=== PATIENT | male | born 1945 | race Caucasian/White ===

== ENCOUNTER 2020-02-07 16:56 | Inpatient (IN) ==
[~2020-02-07 16:56] MED LIST: *HR* Etomidate 20 MG/10 ML AMPUL IVP ONE; *HR* Rocuronium Bromide 100 MG/10 ML VIAL IVC ONE; Aminoglycoside Consult 1 EACH MC ONE
[2020-02-07] MEDS ORDERED: Ipratropium/Albuterol Neb 3 ML IH ONE (17:14)
[2020-02-07] MEDS ORDERED: methylPREDNISolone 125 MG/2 ML VIAL IVP ONE (17:30)
[2020-02-07] MEDS ORDERED: Piperacillin/Tazobactam 3.375 GM in Water for inj. (sterile) 20 ML IVP ONE (17:58)
[2020-02-07] MEDS ORDERED: Tuberculin Skin Test (PPD) 5 UNIT/0.1 ML VIAL ID STA (17:58)
[2020-02-07] MEDS ORDERED: Albuterol 2.5 MG/3 ML NEBULIZER IH ONE (17:59)
[2020-02-07] MEDS ORDERED: Azithromycin 500 MG in 0.9 % Sodium Chloride 250 ML IVPB ONE (18:01)
[2020-02-07] MEDS ORDERED: Glycopyrrolate 1 MG TABLET PO STA (18:08)
[2020-02-07] MEDS ORDERED: Nitroglycerin 0.4 MG TAB.SUBL SL STA (18:23)
[2020-02-07] MEDS ORDERED: *HR* Etomidate 20 MG/10 ML AMPUL IVP ONE (18:35)
[2020-02-07] MEDS ORDERED: *HR* Rocuronium Bromide 50 MG/5 ML VIAL IVP ONE (18:35)
[2020-02-07] MEDS ORDERED: *HR* EPINEPHrine 100 MCG/10 ML SYRINGE IVP ONE (18:44)
[2020-02-07 18:47] LABS: INR 2.4; Prothrombin Time 26.9 Seconds (9.4-12.1)
[2020-02-07 18:47] LABS: VBG HCO3 25 mEq/L (21-27); VBG PCO2 38 mmHg (41-51); VBG PH 7.43 pH Units (7.32-7.42); VBG PO2 136 mmHg (25-50)
[2020-02-07 18:50] LABS: Basophils % 0.5 %; Eosinophils # 0.2 K/mcL (0.0-0.6); Eosinophils % 1.9 %; Hematocrit 32.4 % (37.5-50.1); Hemoglobin 10.3 g/dL (12.9-16.9); Immature Granulocytes % 0.4 % (0-4); Lymphocytes # 2.3 K/mcL (0.6-4.6); Lymphocytes % 29.5 %; Mean Corpuscular HGB Conc 31.8 g/dL (31.6-35.5); Mean Corpuscular Hemoglobin 26.4 pg (28.0-33.3); Mean Corpuscular Volume 83.1 fL (83.0-100.0); Mean Platelet Volume 11.2 fL (9.4-12.4); Monocytes # 0.5 K/mcL (0.0-1.3); Monocytes % 6.3 %; Neutrophils # 4.8 K/mcL (1.6-8.9); Platelet Count 142 K/mcL (140-400); Segmented Neutrophils % 61.4 %; White Blood Count 7.8 K/mcL (4.3-11.1)
[2020-02-07 19:05] LABS: BUN/Creatinine Ratio 38 (6-26); Blood Urea Nitrogen 18 mg/dL (8-23); Calcium 8.4 mg/dL (8.6-10.3); Carbon Dioxide 24 mEq/L (23-29); Chloride 103 mEq/L (98-107); Glucose 130 mg/dL (70-105); Osmolality,Calculated 284 (280-300); Potassium 3.8 mEq/L (3.5-5.1); Sodium 135 mEq/L (136-145); Troponin I < 0.03 ng/mL (< 0.04); eGFR For African Americans > 60 (> 60); eGFR For Non-African Americans > 60 (> 60)
[2020-02-07] MEDS ORDERED: *HR* FentaNYL (PF) 100 MCG/2 ML VIAL IVP ONE (19:22)
[2020-02-07] MEDS: FentaNYL (PF) 1,000 MCG in 0.9 % Sodium Chloride 80 ML IVC SCH (19:42)
[2020-02-07] MEDS ORDERED: Naloxone 0.4 MG/ML INJ IVP PRN (20:44)
[2020-02-07] MEDS ORDERED: *HR* Dextrose 50 % in Water (Syg) 50 ML SYRINGE IVP PRN (20:47)
[2020-02-07] MEDS ORDERED: D5% in Water 1,000 ML IVC PRN (20:47)
[2020-02-07] MEDS ORDERED: Artificial Tears SOLN 15 ML BOTTLE BOTH EYES PRN (20:47)
[2020-02-07] MEDS ORDERED: Dextrose Gel 15 GM/37.5 ML TUBE PO PRN ×2 (20:47)
[2020-02-07] MEDS ORDERED: *HR* Labetalol 20 MG/4 ML SYRINGE IVP PRN (20:49)
[2020-02-07 22:18] LABS: ABG Base Excess -3 mEq/L (-2 to 3); ABG HCO3 25 mEq/L (21-27); ABG Oxygen Saturation 100 % (95-98); ABG PCO2 59 mmHg (35-45); ABG PH 7.24 pH Units (7.32-7.45); ABG PO2 283 mmHg (85-104); ABG TCO2 27 mEq/L (20-26); Blood Gas VT 500 cc
[2020-02-07] MEDS: Chlorhexidine Rinse 15 ML MOUTHWASH MM SCH (22:20)
[2020-02-07] MEDS ORDERED: Isovue-370 500 ML BOTTLE IVP ONE (22:23)
[2020-02-07] MEDS: Pantoprazole 40 MG VIAL IVP SCH (22:30)
[2020-02-07 22:34] LABS: Bilirubin,Urine Negative (Negative); Blood,Urine Large (Negative); Clarity,Urine Cloudy (Clear); Color,Urine Yellow (Yellow); Glucose,Urine (UA) Normal (Normal); Ketones,Urine Negative (Negative); Leukocyte Esterase,Urine Trace (Negative); Nitrite,Urine Negative (Negative); Protein,Urine 100 mg/dL (Neg-Trace); Specific Gravity,Urine 1.016 (1.010-1.025); Urobilinogen,Urine Normal (Normal)
[2020-02-07 22:37] LABS: Bacteria,Urine None Seen per hpf (None-Few); Hyaline Casts,Urine None Seen per lpf (None-Few); RBC,Urine 30-50 per hpf (0-3); Squamous Epithelial Cell,Urine Many per lpf (None-Few)
[2020-02-07 22:56] LABS: Hematocrit 39.7 % (37.5-50.1)
[2020-02-07 22:58] LABS: Hemoglobin 11.9 g/dL (12.9-16.9)
[2020-02-08] MEDS: Artificial Tears SOLN 15 ML BOTTLE BOTH EYES SCH ×7 (00:39→23:41)
[2020-02-08] MEDS: Piperacillin/Tazobactam 3.375 GM in 0.9 % Sodium Chloride Mini Bag 100 ML IVPB SCH ×4 (00:40→23:40)
[2020-02-08] MEDS ORDERED: Calcium Gluconate 1gm/50mL 1 GM/50 ML BAG IVPB ONE ×2 (02:07→04:00)
[2020-02-08] MEDS ORDERED: Octreotide 50 MCG/ML INJ IVP ONE (02:09)
[2020-02-08] MEDS ORDERED: Dextrose Gel 15 GM/37.5 ML TUBE PO PRN ×2 (02:13)
[2020-02-08] MEDS ORDERED: *HR* Dextrose 50 % in Water (Syg) 50 ML SYRINGE IVP PRN (02:13)
[2020-02-08] MEDS ORDERED: D5% in Water 1,000 ML IVC PRN (02:13)
[2020-02-08] MEDS ORDERED: Vancomycin (wt based) 1,000 MG VIAL IVPB SCH (03:00)
[2020-02-08] MEDS: Insulin LISPRO 300 UNITS/3 ML VIAL SQ SCH ×5 (03:20→23:41)
[2020-02-08] MEDS: Octreotide 400 MCG in 0.9 % Sodium Chloride 100 ML IVC SCH ×2 (03:43→18:40)
[2020-02-08 04:11] LABS: ABG Base Excess -1 mEq/L (-2 to 3); ABG HCO3 25 mEq/L (21-27); ABG Oxygen Saturation 92 % (95-98); ABG PCO2 49 mmHg (35-45); ABG PH 7.32 pH Units (7.32-7.45); ABG PO2 70 mmHg (85-104); ABG TCO2 27 mEq/L (20-26); Blood Gas VT 500 cc
[2020-02-08] MEDS: FentaNYL (PF) 1,000 MCG in 0.9 % Sodium Chloride 80 ML IVC SCH (04:32)
[2020-02-08 05:07] LABS: INR 1.9; Prothrombin Time 21.1 Seconds (9.4-12.1)
[2020-02-08] MEDS: Pantoprazole 40 MG VIAL IVP SCH ×2 (05:16→18:37)
[2020-02-08 05:29] LABS: Alanine Aminotransferase 8 Units/L (7-52); Alkaline Phosphatase 96 Units/L (34-104); Aspartate Amino Transferase 15 Units/L (13-39); BUN/Creatinine Ratio 33 (6-26); Bilirubin,Total 0.6 mg/dL (0.3-1.0); Blood Urea Nitrogen 27 mg/dL (8-23); Calcium 8.6 mg/dL (8.6-10.3); Carbon Dioxide 23 mEq/L (23-29); Chloride 104 mEq/L (98-107); Glucose 178 mg/dL (70-105); Magnesium 1.9 mg/dL (1.6-2.6); Osmolality,Calculated 292 (280-300); Phosphorous 4.9 mg/dL (2.7-4.5); Potassium 4.3 mEq/L (3.5-5.1); Sodium 136 mEq/L (136-145); eGFR For African Americans > 60 (> 60); eGFR For Non-African Americans > 60 (> 60)
[2020-02-08] MEDS ORDERED: Pantoprazole 40 MG VIAL IVP SCH (06:00)
[2020-02-08] MEDS ORDERED: Insulin LISPRO 300 UNITS/3 ML VIAL SQ SCH ×2 (06:00)
[2020-02-08] MEDS ORDERED: Piperacillin/Tazobactam 3.375 GM in 0.9 % Sodium Chloride Mini Bag 100 ML IVPB SCH (06:00)
[2020-02-08 06:22] LABS: Hematocrit 31.8 % (37.5-50.1); Immature Granulocytes % 0.5 % (0-4); Lymphocytes # 0.8 K/mcL (0.6-4.6); Lymphocytes % 17.9 %; Mean Corpuscular HGB Conc 31.1 g/dL (31.6-35.5); Mean Corpuscular Hemoglobin 26.3 pg (28.0-33.3); Mean Corpuscular Volume 84.4 fL (83.0-100.0); Mean Platelet Volume 11.8 fL (9.4-12.4); Monocytes # 0.1 K/mcL (0.0-1.3); Monocytes % 1.1 %; Platelet Count 131 K/mcL (140-400); Red Blood Count 3.77 M/mcL (4.19-5.50); Red Cell Distribution Width 16.7 % (11.5-14.5); Segmented Neutrophils % 80.5 %
[2020-02-08 06:23] LABS: Hemoglobin 9.9 g/dL (12.9-16.9); Neutrophils # 3.5 K/mcL (1.6-8.9); White Blood Count 4.4 K/mcL (4.3-11.1)
[2020-02-08] MEDS: Chlorhexidine Rinse 15 ML MOUTHWASH MM SCH ×2 (07:39→20:30)
[2020-02-08 08:43] LABS: Estimated Average Glucose 114 mg/dl
[2020-02-08] MEDS ORDERED: *HR* EPINEPHrine 1 MG/10 ML SYRINGE INTRATRACH STA (09:54)
[2020-02-08] MEDS: Dexmedetomidine HCl 400 MCG/100 ML MLS IVC SCH ×2 (10:00→23:43)
[2020-02-08] MEDS ORDERED: Dexmedetomidine HCl 400 MCG/100 ML MLS IVC ONE (10:01)
[2020-02-08] MEDS ORDERED: *HR* EPINEPHrine 1 MG/10 ML SYRINGE ONE (10:14)
[2020-02-08 12:27] LABS: Adenovirus Not Detected (Not Detect); Bordetella Pertussis Not Detected (Not Detect); Chlamydophila pneumoniae Not Detected (Not Detect); Coronavirus 229E Not Detected (Not Detect); Coronavirus HKU1 Not Detected (Not Detect); Coronavirus NL63 Not Detected (Not Detect); Coronavirus OC43 Not Detected (Not Detect); Human Metapneumovirus Not Detected (Not Detect); Human Rhinovirus/Enterovirus Not Detected (Not Detect); Influenza B Not Detected (Not Detect); Mycoplasma pneumoniae Not Detected (Not Detect); Parainfluenza Virus 1 Not Detected (Not Detect); Parainfluenza Virus 2 Not Detected (Not Detect); Parainfluenza Virus 3 Not Detected (Not Detect); Parainfluenza Virus 4 Not Detected (Not Detect); Respiratory Syncytial Virus Not Detected (Not Detect)
[2020-02-08 12:29] LABS: Influenza A Subtype 2009 H1 DETECTED (Not Detect)
[2020-02-08 13:19] LABS: Bilirubin,Urine Negative (Negative); Blood,Urine Trace (Negative); Clarity,Urine Clear (Clear); Color,Urine Yellow (Yellow); Glucose,Urine (UA) Normal (Normal); Ketones,Urine Negative (Negative); Leukocyte Esterase,Urine Negative (Negative); Nitrite,Urine Negative (Negative); Protein,Urine 30 mg/dL (Neg-Trace); Specific Gravity,Urine > 1.030 (1.010-1.025); Urobilinogen,Urine Normal (Normal)
[2020-02-08 13:22] LABS: Bacteria,Urine None Seen per hpf (None-Few); Hyaline Casts,Urine None Seen per lpf (None-Few); RBC,Urine 15-30 per hpf (0-3); Squamous Epithelial Cell,Urine Many per lpf (None-Few)
[2020-02-08 14:57] LABS: Hematocrit 31.4 % (37.5-50.1)
[2020-02-08] MEDS: Ipratropium/Albuterol Neb 3 ML IH SCH ×2 (15:35→21:56)
[2020-02-08] MEDS: Azithromycin 500 MG in 0.9 % Sodium Chloride 250 ML IVPB SCH (15:57)
[2020-02-08 18:08] LABS: Red Cell Distribution Width 16.6 % (11.5-14.5)
[2020-02-08 18:08] LABS: Appearance of Body Fluid Cloudy (Clear); Volume of Body Fluid 15 mL
[2020-02-08 18:10] LABS: Hematocrit 31.3 % (37.5-50.1); Hemoglobin 9.8 g/dL (12.9-16.9); Immature Platelets 6.6 % (1.1-6.1); Mean Corpuscular HGB Conc 31.3 g/dL (31.6-35.5); Mean Corpuscular Hemoglobin 26.2 pg (28.0-33.3); Mean Corpuscular Volume 83.7 fL (83.0-100.0); Mean Platelet Volume 12.1 fL (9.4-12.4); Red Blood Count 3.74 M/mcL (4.19-5.50); White Blood Count 3.2 K/mcL (4.3-11.1)
[2020-02-08 20:59] LABS: Hematocrit 32.4 % (37.5-50.1); Hemoglobin 9.9 g/dL (12.9-16.9)
[2020-02-09] MEDS: Ipratropium/Albuterol Neb 3 ML IH SCH ×4 (03:27→21:39)
[2020-02-09 04:32] LABS: Hematocrit 30.3 % (37.5-50.1); Hemoglobin 9.5 g/dL (12.9-16.9); Immature Granulocytes % 0.2 % (0-4); Lymphocytes # 0.7 K/mcL (0.6-4.6); Lymphocytes % 15.6 %; Mean Corpuscular HGB Conc 31.4 g/dL (31.6-35.5); Mean Corpuscular Hemoglobin 26.6 pg (28.0-33.3); Mean Corpuscular Volume 84.9 fL (83.0-100.0); Monocytes # 0.3 K/mcL (0.0-1.3); Monocytes % 6.8 %; Neutrophils # 3.3 K/mcL (1.6-8.9); Platelet Count 150 K/mcL (140-400); Red Blood Count 3.57 M/mcL (4.19-5.50); Red Cell Distribution Width 16.9 % (11.5-14.5); Segmented Neutrophils % 77.4 %
[2020-02-09 04:39] LABS: INR 1.7; White Blood Count 4.3 K/mcL (4.3-11.1)
[2020-02-09 04:58] LABS: ABG Base Excess 1 mEq/L (-2 to 3); ABG HCO3 27 mEq/L (21-27); ABG Oxygen Saturation 95 % (95-98); ABG PCO2 52 mmHg (35-45); ABG PH 7.32 pH Units (7.32-7.45); ABG PO2 84 mmHg (85-104); ABG TCO2 29 mEq/L (20-26); Blood Gas VT 500 cc
[2020-02-09] MEDS: Artificial Tears SOLN 15 ML BOTTLE BOTH EYES SCH ×3 (05:09→10:51)
[2020-02-09] MEDS: Pantoprazole 40 MG VIAL IVP SCH ×2 (05:23→17:19)
[2020-02-09] MEDS: Insulin LISPRO 300 UNITS/3 ML VIAL SQ SCH ×4 (05:23→17:49)
[2020-02-09] MEDS: Piperacillin/Tazobactam 3.375 GM in 0.9 % Sodium Chloride Mini Bag 100 ML IVPB SCH ×2 (08:04→15:27)
[2020-02-09] MEDS: Chlorhexidine Rinse 15 ML MOUTHWASH MM SCH (08:05)
[2020-02-09 08:47] LABS: Hemoglobin 9.8 g/dL (12.9-16.9)
[2020-02-09] MEDS: Octreotide 400 MCG in 0.9 % Sodium Chloride 100 ML IVC SCH (10:50)
[2020-02-09] MEDS ORDERED: Lidocaine -MPF 2% 2 ML VIAL ONE (12:53)
[2020-02-09 14:07] LABS: Hematocrit 32.7 % (37.5-50.1)
[2020-02-09] MEDS ORDERED: Mag Hydrox/Al Hydrox/Simeth 30 ML UDC PO PRN (15:09)
[2020-02-09] MEDS: Azithromycin 500 MG in 0.9 % Sodium Chloride 250 ML IVPB SCH (15:26)
[2020-02-09] MEDS: Simethicone 80 MG TAB.CHEW PO SCH (15:48)
[2020-02-09] MEDS ORDERED: LACTASE PO SCH (17:00)
[2020-02-09] MEDS: Apixaban 5 MG TABLET PO SCH (20:11)
[2020-02-09] MEDS: Thiamine (B-1) 100 MG TABLET PO SCH (20:11)
[2020-02-09] MEDS: *HR* OxyCODONE Immed Rel 5 MG TABLET PO PRN (20:12)
[2020-02-09] MEDS: Baclofen 10 MG TABLET PO SCH (20:12)
[2020-02-09] MEDS: Pregabalin 75 MG CAPSULE PO SCH (20:12)
[2020-02-09] MEDS: Ascorbic Acid 500 MG TABLET PO SCH (20:12)
[2020-02-09] MEDS: Budesonide/Formoterol 160/4.5 1 PUFF INH IH SCH (21:39)
[2020-02-10] MEDS: Dexmedetomidine HCl 400 MCG/100 ML MLS IVC SCH ×2 (00:09→17:55)
[2020-02-10] MEDS: Piperacillin/Tazobactam 3.375 GM in 0.9 % Sodium Chloride Mini Bag 100 ML IVPB SCH ×3 (00:12→15:28)
[2020-02-10] MEDS: Insulin LISPRO 300 UNITS/3 ML VIAL SQ SCH ×4 (00:35→18:08)
[2020-02-10] MEDS: Ipratropium/Albuterol Neb 3 ML IH SCH ×4 (04:01→22:29)
[2020-02-10 06:02] LABS: ABG Base Excess 0 mEq/L (-2 to 3); ABG HCO3 26 mEq/L (21-27); ABG Oxygen Saturation 91 % (95-98); ABG PCO2 44 mmHg (35-45); ABG PH 7.37 pH Units (7.32-7.45); ABG PO2 63 mmHg (85-104); ABG TCO2 27 mEq/L (20-26)
[2020-02-10] MEDS: Pantoprazole 40 MG VIAL IVP SCH (06:03)
[2020-02-10 06:36] LABS: INR 1.8; Prothrombin Time 20.2 Seconds (9.4-12.1)
[2020-02-10 06:37] LABS: Basophils % 0.3 %; Eosinophils # 0.2 K/mcL (0.0-0.6); Eosinophils % 1.5 %; Hematocrit 34.1 % (37.5-50.1); Hemoglobin 10.5 g/dL (12.9-16.9); Immature Granulocytes % 0.4 % (0-4); Lymphocytes # 1.6 K/mcL (0.6-4.6); Lymphocytes % 13.5 %; Mean Corpuscular HGB Conc 30.8 g/dL (31.6-35.5); Mean Corpuscular Hemoglobin 26.3 pg (28.0-33.3); Mean Corpuscular Volume 85.3 fL (83.0-100.0); Mean Platelet Volume 11.3 fL (9.4-12.4); Monocytes # 0.7 K/mcL (0.0-1.3); Monocytes % 6.2 %; Neutrophils # 9.2 K/mcL (1.6-8.9); Platelet Count 234 K/mcL (140-400); Red Cell Distribution Width 16.9 % (11.5-14.5); Segmented Neutrophils % 78.1 %
[2020-02-10 06:41] LABS: White Blood Count 11.8 K/mcL (4.3-11.1)
[2020-02-10 06:57] LABS: Alanine Aminotransferase 10 Units/L (7-52); Albumin 3.2 g/dL (3.5-5.7); Alkaline Phosphatase 93 Units/L (34-104); Aspartate Amino Transferase 18 Units/L (13-39); BUN/Creatinine Ratio 36 (6-26); Bilirubin,Total 0.7 mg/dL (0.3-1.0); Blood Urea Nitrogen 40 mg/dL (8-23); Calcium 8.8 mg/dL (8.6-10.3); Carbon Dioxide 23 mEq/L (23-29); Chloride 107 mEq/L (98-107); Globulin 3.2 g/dL (2.4-3.5); Glucose 121 mg/dL (70-105); Osmolality,Calculated 299 (280-300); Potassium 3.8 mEq/L (3.5-5.1); Sodium 139 mEq/L (136-145); Total Protein 6.4 g/dL (6.4-8.9); eGFR For African Americans > 60 (> 60); eGFR For Non-African Americans > 60 (> 60)
[2020-02-10] MEDS ORDERED: Furosemide 40 MG/4 ML VIAL IVP ONE (07:49)
[2020-02-10] MEDS: Apixaban 5 MG TABLET PO SCH (08:42)
[2020-02-10] MEDS: Pregabalin 75 MG CAPSULE PO SCH ×2 (08:42→20:03)
[2020-02-10] MEDS: Thiamine (B-1) 100 MG TABLET PO SCH ×2 (08:42→20:02)
[2020-02-10] MEDS: Baclofen 10 MG TABLET PO SCH ×3 (08:42→20:01)
[2020-02-10] MEDS: Isosorbide MONOnitrate (24 HR) 60 MG TAB.ER.24H PO SCH (08:42)
[2020-02-10] MEDS: amLODIPine 5 MG TABLET PO SCH (08:42)
[2020-02-10] MEDS: Simethicone 80 MG TAB.CHEW PO SCH ×3 (08:42→15:28)
[2020-02-10] MEDS: Ascorbic Acid 500 MG TABLET PO SCH ×2 (08:42→20:02)
[2020-02-10] MEDS ORDERED: Albuterol 2.5 MG/3 ML NEBULIZER IH PRN (10:47)
[2020-02-10] MEDS: Budesonide/Formoterol 160/4.5 1 PUFF INH IH SCH ×2 (10:56→22:29)
[2020-02-10 13:53] LABS: QuantiFERON Mitogen minus NIL 1.42 IU/mL
[2020-02-10] MEDS: MethylPREDNISolone 40 MG/ML VIAL IVP SCH (15:28)
[2020-02-10] MEDS ORDERED: MethylPREDNISolone 40 MG/ML VIAL IVP SCH (18:00)
[2020-02-10] MEDS: *HR* OxyCODONE Immed Rel 5 MG TABLET PO PRN (20:02)
[2020-02-10] MEDS ORDERED: Heparin 25,000 UNIT/250 ML D5W 25,000 UNIT/250 ML IV.SOLN IVC SCH (21:00)
[2020-02-10] MEDS ORDERED: *HR* Heparin 5,000 UNIT/ML VIAL IVP PRN ×2 (21:00)
[2020-02-11] MEDS: Piperacillin/Tazobactam 3.375 GM in 0.9 % Sodium Chloride Mini Bag 100 ML IVPB SCH ×4 (01:17→23:22)
[2020-02-11] MEDS: Insulin LISPRO 300 UNITS/3 ML VIAL SQ SCH ×4 (01:18→17:14)
[2020-02-11] MEDS: Ipratropium/Albuterol Neb 3 ML IH SCH ×4 (03:56→22:15)
[2020-02-11] MEDS: MethylPREDNISolone 40 MG/ML VIAL IVP SCH ×2 (05:47→17:14)
[2020-02-11 06:47] LABS: Hematocrit 28.9 % (37.5-50.1); Hemoglobin 9.1 g/dL (12.9-16.9); Immature Granulocytes % 0.6 % (0-4); Lymphocytes # 0.7 K/mcL (0.6-4.6); Lymphocytes % 21.4 %; Mean Corpuscular HGB Conc 31.5 g/dL (31.6-35.5); Mean Corpuscular Hemoglobin 25.9 pg (28.0-33.3); Mean Corpuscular Volume 82.1 fL (83.0-100.0); Mean Platelet Volume 10.6 fL (9.4-12.4); Monocytes # 0.1 K/mcL (0.0-1.3); Monocytes % 3.9 %; Neutrophils # 2.5 K/mcL (1.6-8.9); Platelet Count 153 K/mcL (140-400); Red Blood Count 3.52 M/mcL (4.19-5.50); Red Cell Distribution Width 16.5 % (11.5-14.5); Segmented Neutrophils % 74.1 %
[2020-02-11 06:49] LABS: White Blood Count 3.3 K/mcL (4.3-11.1)
[2020-02-11 06:54] LABS: BUN/Creatinine Ratio 41 (6-26); Blood Urea Nitrogen 42 mg/dL (8-23); Calcium 8.8 mg/dL (8.6-10.3); Carbon Dioxide 24 mEq/L (23-29); Chloride 103 mEq/L (98-107); Glucose 154 mg/dL (70-105); Osmolality,Calculated 306 (280-300); Potassium 3.5 mEq/L (3.5-5.1); Sodium 141 mEq/L (136-145); eGFR For African Americans > 60 (> 60); eGFR For Non-African Americans > 60 (> 60)
[2020-02-11 07:37] LABS: INR 1.9; Prothrombin Time 21.4 Seconds (9.4-12.1)
[2020-02-11] MEDS ORDERED: Furosemide 40 MG/4 ML VIAL IVP ONE (08:04)
[2020-02-11] MEDS ORDERED: Apixaban 5 MG TABLET PO SCH (09:00)
[2020-02-11] MEDS: Budesonide/Formoterol 160/4.5 1 PUFF INH IH SCH ×2 (09:23→22:15)
[2020-02-11] MEDS: Pregabalin 75 MG CAPSULE PO SCH ×2 (09:25→11:15)
[2020-02-11] MEDS: Thiamine (B-1) 100 MG TABLET PO SCH ×3 (09:25→20:35)
[2020-02-11] MEDS: Isosorbide MONOnitrate (24 HR) 60 MG TAB.ER.24H PO SCH (09:25)
[2020-02-11] MEDS: Ascorbic Acid 500 MG TABLET PO SCH ×3 (09:25→20:35)
[2020-02-11] MEDS: Baclofen 10 MG TABLET PO SCH (09:25)
[2020-02-11] MEDS: amLODIPine 5 MG TABLET PO SCH (09:26)
[2020-02-11] MEDS: Simethicone 80 MG TAB.CHEW PO SCH ×4 (09:26→15:14)
[2020-02-11 11:11] LABS: ABG Base Excess 2 mEq/L (-2 to 3); ABG HCO3 26 mEq/L (21-27); ABG Oxygen Saturation 91 % (95-98); ABG PCO2 38 mmHg (35-45); ABG PH 7.45 pH Units (7.32-7.45); ABG PO2 58 mmHg (85-104); ABG TCO2 27 mEq/L (20-26)
[2020-02-11] MEDS ORDERED: D5% in Water 1,000 ML IVC PRN (13:01)
[2020-02-11] MEDS ORDERED: Mag Hydrox/Al Hydrox/Simeth 30 ML UDC PO PRN (13:01)
[2020-02-11] MEDS ORDERED: Albuterol 2.5 MG/3 ML NEBULIZER IH PRN (13:01)
[2020-02-11] MEDS ORDERED: Dextrose Gel 15 GM/37.5 ML TUBE PO PRN ×2 (13:01)
[2020-02-11] MEDS ORDERED: Naloxone 0.4 MG/ML INJ IVP PRN (13:01)
[2020-02-11] MEDS ORDERED: *HR* Labetalol 20 MG/4 ML SYRINGE IVP PRN (13:01)
[2020-02-11] MEDS ORDERED: *HR* Dextrose 50 % in Water (Syg) 50 ML SYRINGE IVP PRN (13:01)
[2020-02-11] MEDS ORDERED: *HR* OxyCODONE Immed Rel 5 MG TABLET PO SCH (15:00)
[2020-02-11 15:05] LABS: QuantiFERON NIL 0.01 IU/mL; QuantiFERON-TB Gold In-Tube NEGATIVE (Negative)
[2020-02-11] MEDS: *HR* OxyCODONE Immed Rel 5 MG TABLET PO SCH ×2 (15:14→20:35)
[2020-02-11] MEDS: Apixaban 5 MG TABLET PO SCH (20:35)
[2020-02-12] MEDS: Ipratropium/Albuterol Neb 3 ML IH SCH ×3 (03:10→22:09)
[2020-02-12 05:39] LABS: Hematocrit 26.6 % (37.5-50.1); Hemoglobin 8.6 g/dL (12.9-16.9); Immature Granulocytes % 1.6 % (0-4); Lymphocytes # 0.9 K/mcL (0.6-4.6); Lymphocytes % 15.4 %; Mean Corpuscular HGB Conc 32.3 g/dL (31.6-35.5); Mean Corpuscular Hemoglobin 26.1 pg (28.0-33.3); Mean Corpuscular Volume 80.9 fL (83.0-100.0); Monocytes # 0.4 K/mcL (0.0-1.3); Monocytes % 6.4 %; Neutrophils # 4.7 K/mcL (1.6-8.9); Platelet Count 186 K/mcL (140-400); Red Blood Count 3.29 M/mcL (4.19-5.50); Red Cell Distribution Width 16.4 % (11.5-14.5); Segmented Neutrophils % 76.6 %; White Blood Count 6.1 K/mcL (4.3-11.1)
[2020-02-12 05:49] LABS: BUN/Creatinine Ratio 44 (6-26); Blood Urea Nitrogen 42 mg/dL (8-23); Calcium 8.8 mg/dL (8.6-10.3); Carbon Dioxide 26 mEq/L (23-29); Chloride 108 mEq/L (98-107); Glucose 168 mg/dL (70-105); Magnesium 1.9 mg/dL (1.6-2.6); Osmolality,Calculated 302 (280-300); Phosphorous 2.5 mg/dL (2.7-4.5); Potassium 3.6 mEq/L (3.5-5.1); Sodium 139 mEq/L (136-145); eGFR For African Americans > 60 (> 60); eGFR For Non-African Americans > 60 (> 60)
[2020-02-12] MEDS ORDERED: Furosemide 40 MG TABLET PO SCH (09:00)
[2020-02-12] MEDS ORDERED: Piperacillin/Tazobactam 3.375 GM VIAL ONE (09:00)
[2020-02-12] MEDS ORDERED: Ascorbic Acid 500 MG TABLET ONE (09:00)
[2020-02-12] MEDS ORDERED: Isosorbide MONOnitrate (24 HR) 60 MG TAB.ER.24H PO ONE (09:00)
[2020-02-12] MEDS ORDERED: Apixaban 5 MG TABLET ONE (09:00)
[2020-02-12] MEDS ORDERED: *HR* OxyCODONE Immed Rel 5 MG TABLET ONE ×2 (09:00)
[2020-02-12] MEDS ORDERED: Simethicone 80 MG TAB.CHEW PO ONE ×2 (09:00→15:23)
[2020-02-12] MEDS ORDERED: Thiamine (B-1) 100 MG TABLET ONE (09:00)
[2020-02-12] MEDS ORDERED: 0.9 % Sodium Chloride (Mini-Bag +) 100 ML IVBAG ONE (09:00)
[2020-02-12] MEDS ORDERED: amLODIPine 5 MG TABLET ONE (09:00)
[2020-02-12] MEDS ORDERED: Ipratropium/Albuterol Neb 3 ML ONE ×2 (09:00→15:23)
[2020-02-12] MEDS ORDERED: Furosemide 40 MG/4 ML VIAL ONE (10:26)
[2020-02-12] MEDS: Budesonide/Formoterol 160/4.5 1 PUFF INH IH SCH ×2 (16:10→22:09)
[2020-02-12] MEDS: Piperacillin/Tazobactam 3.375 GM in 0.9 % Sodium Chloride Mini Bag 100 ML IVPB SCH ×2 (18:51→19:43)
[2020-02-12] MEDS: Simethicone 80 MG TAB.CHEW PO SCH ×3 (18:53→19:43)
[2020-02-12] MEDS: amLODIPine 5 MG TABLET PO SCH (18:54)
[2020-02-12] MEDS: *HR* OxyCODONE Immed Rel 5 MG TABLET PO SCH ×3 (18:54→20:34)
[2020-02-12] MEDS: Apixaban 5 MG TABLET PO SCH ×2 (18:54→20:35)
[2020-02-12] MEDS: Isosorbide MONOnitrate (24 HR) 60 MG TAB.ER.24H PO SCH (18:54)
[2020-02-12] MEDS: Thiamine (B-1) 100 MG TABLET PO SCH ×2 (18:55→20:36)
[2020-02-12] MEDS: Ascorbic Acid 500 MG TABLET PO SCH ×2 (18:55→20:34)
[2020-02-12] MEDS: Insulin LISPRO 300 UNITS/3 ML VIAL SQ SCH ×2 (19:43→20:28)
[2020-02-12] MEDS: MethylPREDNISolone 40 MG/ML VIAL IVP SCH ×2 (19:43→20:28)
[2020-02-12] MEDS: Furosemide 40 MG/4 ML VIAL IV SCH (20:34)
[2020-02-13] MEDS: Piperacillin/Tazobactam 3.375 GM in 0.9 % Sodium Chloride Mini Bag 100 ML IVPB SCH (01:27)
[2020-02-13] MEDS: Ipratropium/Albuterol Neb 3 ML IH SCH ×4 (03:44→21:13)
[2020-02-13] MEDS: Insulin LISPRO 300 UNITS/3 ML VIAL SQ SCH ×7 (04:25→20:41)
[2020-02-13] MEDS: MethylPREDNISolone 40 MG/ML VIAL IVP SCH (06:13)
[2020-02-13] MEDS ORDERED: Dextrose Gel 15 GM/37.5 ML TUBE PO PRN ×2 (06:24)
[2020-02-13] MEDS ORDERED: D5% in Water 1,000 ML IVC PRN (06:24)
[2020-02-13] MEDS ORDERED: *HR* Dextrose 50 % in Water (Syg) 50 ML SYRINGE IVP PRN (06:24)
[2020-02-13 07:37] LABS: BUN/Creatinine Ratio 48 (6-26); Blood Urea Nitrogen 43 mg/dL (8-23); Calcium 8.6 mg/dL (8.6-10.3); Carbon Dioxide 24 mEq/L (23-29); Chloride 103 mEq/L (98-107); Glucose 157 mg/dL (70-105); Osmolality,Calculated 300 (280-300); Sodium 138 mEq/L (136-145); eGFR For African Americans > 60 (> 60); eGFR For Non-African Americans > 60 (> 60)
[2020-02-13] MEDS: Apixaban 5 MG TABLET PO SCH (09:51)
[2020-02-13] MEDS: Simethicone 80 MG TAB.CHEW PO SCH ×3 (09:52→16:46)
[2020-02-13] MEDS: Thiamine (B-1) 100 MG TABLET PO SCH ×2 (09:52→20:39)
[2020-02-13] MEDS: *HR* OxyCODONE Immed Rel 5 MG TABLET PO SCH ×3 (09:52→20:39)
[2020-02-13] MEDS: Isosorbide MONOnitrate (24 HR) 60 MG TAB.ER.24H PO SCH (09:52)
[2020-02-13] MEDS: Ascorbic Acid 500 MG TABLET PO SCH ×2 (09:53→20:39)
[2020-02-13] MEDS: amLODIPine 5 MG TABLET PO SCH (09:53)
[2020-02-13] MEDS: Furosemide 40 MG/4 ML VIAL IV SCH ×2 (09:54→20:38)
[2020-02-13] MEDS: Budesonide/Formoterol 160/4.5 1 PUFF INH IH SCH ×2 (10:36→21:13)
[2020-02-13] MEDS: predniSONE 20 MG TABLET PO SCH (12:17)
[2020-02-14] MEDS: Ipratropium/Albuterol Neb 3 ML IH SCH ×4 (03:43→21:41)
[2020-02-14 05:46] LABS: Hematocrit 21.8 % (37.5-50.1); Mean Corpuscular HGB Conc 32.1 g/dL (31.6-35.5); Mean Corpuscular Hemoglobin 26.2 pg (28.0-33.3); Mean Corpuscular Volume 81.6 fL (83.0-100.0); Mean Platelet Volume 10.8 fL (9.4-12.4); Platelet Count 240 K/mcL (140-400); Red Blood Count 2.67 M/mcL (4.19-5.50); Red Cell Distribution Width 16.7 % (11.5-14.5)
[2020-02-14 05:47] LABS: White Blood Count 12.6 K/mcL (4.3-11.1)
[2020-02-14 06:27] LABS: BUN/Creatinine Ratio 51 (6-26); Blood Urea Nitrogen 46 mg/dL (8-23); Calcium 8.9 mg/dL (8.6-10.3); Carbon Dioxide 25 mEq/L (23-29); Chloride 105 mEq/L (98-107); Glucose 170 mg/dL (70-105); Magnesium 1.7 mg/dL (1.6-2.6); Osmolality,Calculated 306 (280-300); Phosphorous 2.9 mg/dL (2.7-4.5); Sodium 140 mEq/L (136-145); eGFR For African Americans > 60 (> 60); eGFR For Non-African Americans > 60 (> 60)
[2020-02-14] MEDS: Thiamine (B-1) 100 MG TABLET PO SCH ×2 (07:58→20:37)
[2020-02-14] MEDS: amLODIPine 5 MG TABLET PO SCH (07:58)
[2020-02-14] MEDS: Ascorbic Acid 500 MG TABLET PO SCH ×2 (07:59→20:37)
[2020-02-14] MEDS: Isosorbide MONOnitrate (24 HR) 60 MG TAB.ER.24H PO SCH (07:59)
[2020-02-14] MEDS: Simethicone 80 MG TAB.CHEW PO SCH ×3 (07:59→17:04)
[2020-02-14] MEDS: *HR* OxyCODONE Immed Rel 5 MG TABLET PO SCH ×3 (07:59→20:37)
[2020-02-14] MEDS: predniSONE 20 MG TABLET PO SCH (08:00)
[2020-02-14] MEDS: Furosemide 40 MG/4 ML VIAL IV SCH ×2 (08:00→20:38)
[2020-02-14] MEDS: Insulin LISPRO 300 UNITS/3 ML VIAL SQ SCH ×4 (08:08→21:00)
[2020-02-14] MEDS: Budesonide/Formoterol 160/4.5 1 PUFF INH IH SCH ×2 (10:10→21:40)
[2020-02-14] MEDS: Piperacillin/Tazobactam 3.375 GM in 0.9 % Sodium Chloride Mini Bag 100 ML IVPB SCH ×2 (12:29→20:39)
[2020-02-14] MEDS ORDERED: Perflutren Lipid Microsphere 1.3 ML in 0.9 % Sodium Chloride 8.7 ML IVP ONE (20:22)
[2020-02-15] MEDS: Ipratropium/Albuterol Neb 3 ML IH SCH ×4 (03:29→22:35)
[2020-02-15 04:48] LABS: Hematocrit 19.5 % (37.5-50.1); Hemoglobin 6.1 g/dL (12.9-16.9); Mean Corpuscular HGB Conc 31.3 g/dL (31.6-35.5); Mean Platelet Volume 10.6 fL (9.4-12.4); Platelet Count 226 K/mcL (140-400); Red Blood Count 2.35 M/mcL (4.19-5.50); Red Cell Distribution Width 17.1 % (11.5-14.5); White Blood Count 11.9 K/mcL (4.3-11.1)
[2020-02-15 05:12] LABS: BUN/Creatinine Ratio 45 (6-26); Blood Urea Nitrogen 44 mg/dL (8-23); Calcium 8.5 mg/dL (8.6-10.3); Carbon Dioxide 25 mEq/L (23-29); Chloride 103 mEq/L (98-107); Glucose 144 mg/dL (70-105); Osmolality,Calculated 300 (280-300); Potassium 3.6 mEq/L (3.5-5.1); Sodium 138 mEq/L (136-145); eGFR For African Americans > 60 (> 60); eGFR For Non-African Americans > 60 (> 60)
[2020-02-15] MEDS: Piperacillin/Tazobactam 3.375 GM in 0.9 % Sodium Chloride Mini Bag 100 ML IVPB SCH ×3 (05:38→20:15)
[2020-02-15] MEDS: amLODIPine 5 MG TABLET PO SCH (08:07)
[2020-02-15] MEDS: Thiamine (B-1) 100 MG TABLET PO SCH ×2 (08:08→20:14)
[2020-02-15] MEDS: predniSONE 20 MG TABLET PO SCH (08:08)
[2020-02-15] MEDS: Simethicone 80 MG TAB.CHEW PO SCH ×3 (08:08→15:05)
[2020-02-15] MEDS: *HR* OxyCODONE Immed Rel 5 MG TABLET PO SCH ×3 (08:08→20:14)
[2020-02-15] MEDS: Isosorbide MONOnitrate (24 HR) 60 MG TAB.ER.24H PO SCH (08:08)
[2020-02-15] MEDS: Ascorbic Acid 500 MG TABLET PO SCH ×2 (08:08→20:14)
[2020-02-15] MEDS: Furosemide 40 MG/4 ML VIAL IV SCH ×2 (08:09→20:15)
[2020-02-15] MEDS: Insulin LISPRO 300 UNITS/3 ML VIAL SQ SCH ×4 (08:09→20:28)
[2020-02-15] MEDS: Budesonide/Formoterol 160/4.5 1 PUFF INH IH SCH ×2 (10:08→22:35)
[2020-02-15] MEDS: Apixaban 5 MG TABLET PO SCH (20:14)
[2020-02-16 01:31] LABS: Hematocrit 24.8 % (37.5-50.1); Mean Corpuscular Hemoglobin 26.4 pg (28.0-33.3); Mean Corpuscular Volume 84.9 fL (83.0-100.0); Mean Platelet Volume 10.5 fL (9.4-12.4); Platelet Count 233 K/mcL (140-400); Red Blood Count 2.92 M/mcL (4.19-5.50); Red Cell Distribution Width 16.7 % (11.5-14.5); White Blood Count 9.1 K/mcL (4.3-11.1)
[2020-02-16 01:32] LABS: Hemoglobin 7.7 g/dL (12.9-16.9)
[2020-02-16 01:51] LABS: BUN/Creatinine Ratio 42 (6-26); Blood Urea Nitrogen 38 mg/dL (8-23); Calcium 8.5 mg/dL (8.6-10.3); Carbon Dioxide 27 mEq/L (23-29); Chloride 105 mEq/L (98-107); Glucose 104 mg/dL (70-105); Osmolality,Calculated 301 (280-300); Potassium 3.4 mEq/L (3.5-5.1); Sodium 141 mEq/L (136-145); eGFR For African Americans > 60 (> 60); eGFR For Non-African Americans > 60 (> 60)
[2020-02-16] MEDS: Piperacillin/Tazobactam 3.375 GM in 0.9 % Sodium Chloride Mini Bag 100 ML IVPB SCH ×3 (04:46→20:22)
[2020-02-16] MEDS: Ipratropium/Albuterol Neb 3 ML IH SCH ×4 (04:49→21:58)
[2020-02-16] MEDS: Thiamine (B-1) 100 MG TABLET PO SCH ×2 (07:53→20:24)
[2020-02-16] MEDS: Apixaban 5 MG TABLET PO SCH ×2 (07:53→20:23)
[2020-02-16] MEDS: amLODIPine 5 MG TABLET PO SCH (07:53)
[2020-02-16] MEDS: Isosorbide MONOnitrate (24 HR) 60 MG TAB.ER.24H PO SCH (07:53)
[2020-02-16] MEDS: predniSONE 20 MG TABLET PO SCH (07:53)
[2020-02-16] MEDS: Ascorbic Acid 500 MG TABLET PO SCH ×2 (07:53→20:21)
[2020-02-16] MEDS: Simethicone 80 MG TAB.CHEW PO SCH ×3 (07:54→15:14)
[2020-02-16] MEDS: *HR* OxyCODONE Immed Rel 5 MG TABLET PO SCH ×3 (07:54→20:16)
[2020-02-16] MEDS: Insulin LISPRO 300 UNITS/3 ML VIAL SQ SCH ×4 (08:01→20:16)
[2020-02-16] MEDS: Furosemide 40 MG/4 ML VIAL IV SCH ×2 (08:04→20:21)
[2020-02-16] MEDS: Budesonide/Formoterol 160/4.5 1 PUFF INH IH SCH ×2 (10:31→21:58)
[2020-02-16] MEDS ORDERED: Isovue-370 500 ML BOTTLE IVP ONE ×2 (16:13→18:11)
[2020-02-16] MEDS: MethylPREDNISolone 40 MG/ML VIAL IVP SCH (23:19)
[2020-02-17] MEDS ORDERED: Piperacillin/Tazobactam 3.375 GM in 0.9 % Sodium Chloride Mini Bag 100 ML IVPB SCH
[2020-02-17 02:35] LABS: Hematocrit 27.2 % (37.5-50.1); Hemoglobin 8.4 g/dL (12.9-16.9); Mean Corpuscular HGB Conc 30.9 g/dL (31.6-35.5); Mean Corpuscular Hemoglobin 26.5 pg (28.0-33.3); Mean Corpuscular Volume 85.8 fL (83.0-100.0); Mean Platelet Volume 10.3 fL (9.4-12.4); Platelet Count 310 K/mcL (140-400); Red Blood Count 3.17 M/mcL (4.19-5.50); Red Cell Distribution Width 16.9 % (11.5-14.5)
[2020-02-17 02:36] LABS: White Blood Count 17.8 K/mcL (4.3-11.1)
[2020-02-17 03:03] LABS: BUN/Creatinine Ratio 41 (6-26); Blood Urea Nitrogen 41 mg/dL (8-23); Calcium 8.6 mg/dL (8.6-10.3); Carbon Dioxide 26 mEq/L (23-29); Chloride 102 mEq/L (98-107); Glucose 129 mg/dL (70-105); Osmolality,Calculated 300 (280-300); Potassium 3.8 mEq/L (3.5-5.1); Sodium 139 mEq/L (136-145); eGFR For African Americans > 60 (> 60); eGFR For Non-African Americans > 60 (> 60)
[2020-02-17] MEDS: Ipratropium/Albuterol Neb 3 ML IH SCH ×4 (03:41→21:56)
[2020-02-17] MEDS: Piperacillin/Tazobactam 3.375 GM in 0.9 % Sodium Chloride Mini Bag 100 ML IVPB SCH ×3 (04:25→20:38)
[2020-02-17] MEDS: MethylPREDNISolone 40 MG/ML VIAL IVP SCH ×3 (04:25→23:37)
[2020-02-17] MEDS: Insulin LISPRO 300 UNITS/3 ML VIAL SQ SCH ×4 (08:04→20:53)
[2020-02-17] MEDS: Furosemide 40 MG/4 ML VIAL IV SCH ×2 (08:05→20:37)
[2020-02-17] MEDS: *HR* OxyCODONE Immed Rel 5 MG TABLET PO SCH ×3 (08:05→20:37)
[2020-02-17] MEDS: amLODIPine 5 MG TABLET PO SCH (08:05)
[2020-02-17] MEDS: Simethicone 80 MG TAB.CHEW PO SCH ×3 (08:05→16:53)
[2020-02-17] MEDS: Isosorbide MONOnitrate (24 HR) 60 MG TAB.ER.24H PO SCH (08:05)
[2020-02-17] MEDS: Apixaban 5 MG TABLET PO SCH ×2 (08:05→20:37)
[2020-02-17] MEDS: Thiamine (B-1) 100 MG TABLET PO SCH ×2 (08:05→20:37)
[2020-02-17] MEDS: Ascorbic Acid 500 MG TABLET PO SCH ×2 (08:09→20:37)
[2020-02-17] MEDS: Budesonide/Formoterol 160/4.5 1 PUFF INH IH SCH ×2 (09:58→21:56)
[2020-02-18 02:46] LABS: Hematocrit 24.5 % (37.5-50.1); Hemoglobin 7.8 g/dL (12.9-16.9); Mean Corpuscular HGB Conc 31.8 g/dL (31.6-35.5); Mean Corpuscular Hemoglobin 27.5 pg (28.0-33.3); Mean Corpuscular Volume 86.3 fL (83.0-100.0); Mean Platelet Volume 10.9 fL (9.4-12.4); Platelet Count 277 K/mcL (140-400); Red Blood Count 2.84 M/mcL (4.19-5.50); Red Cell Distribution Width 17.2 % (11.5-14.5); White Blood Count 7.9 K/mcL (4.3-11.1)
[2020-02-18] MEDS: Ipratropium/Albuterol Neb 3 ML IH SCH ×4 (03:37→22:59)
[2020-02-18 03:43] LABS: BUN/Creatinine Ratio 43 (6-26); Blood Urea Nitrogen 53 mg/dL (8-23); Carbon Dioxide 26 mEq/L (23-29); Chloride 103 mEq/L (98-107); Glucose 156 mg/dL (70-105); Osmolality,Calculated 304 (280-300); Potassium 3.9 mEq/L (3.5-5.1); Sodium 138 mEq/L (136-145); eGFR For African Americans > 60 (> 60); eGFR For Non-African Americans 58 (> 60)
[2020-02-18] MEDS: Piperacillin/Tazobactam 3.375 GM in 0.9 % Sodium Chloride Mini Bag 100 ML IVPB SCH ×3 (05:55→21:40)
[2020-02-18] MEDS: Thiamine (B-1) 100 MG TABLET PO SCH ×2 (08:01→21:40)
[2020-02-18] MEDS: *HR* OxyCODONE Immed Rel 5 MG TABLET PO SCH ×3 (08:01→21:39)
[2020-02-18] MEDS: amLODIPine 5 MG TABLET PO SCH (08:02)
[2020-02-18] MEDS: Simethicone 80 MG TAB.CHEW PO SCH ×3 (08:03→17:13)
[2020-02-18] MEDS: Apixaban 5 MG TABLET PO SCH ×2 (08:03→21:39)
[2020-02-18] MEDS: Isosorbide MONOnitrate (24 HR) 60 MG TAB.ER.24H PO SCH (08:03)
[2020-02-18] MEDS: Ascorbic Acid 500 MG TABLET PO SCH ×2 (08:03→21:00)
[2020-02-18] MEDS: Albumin 25% 25gram/100mL 25 GM/100 ML IV.SOLN IVPB SCH ×2 (08:03→17:13)
[2020-02-18] MEDS: MethylPREDNISolone 40 MG/ML VIAL IVP SCH ×2 (08:04→17:13)
[2020-02-18] MEDS: Furosemide 40 MG/4 ML VIAL IV SCH ×2 (08:05→21:39)
[2020-02-18] MEDS: Insulin LISPRO 300 UNITS/3 ML VIAL SQ SCH ×4 (08:06→21:00)
[2020-02-18] MEDS ORDERED: Aminoglycoside Consult 1 EACH MC ONE (08:28)
[2020-02-18] MEDS: Budesonide/Formoterol 160/4.5 1 PUFF INH IH SCH ×2 (10:41→22:59)
[2020-02-18] MEDS: Doxycycline 100 MG CAPSULE PO SCH ×2 (14:20→21:39)
[2020-02-19] MEDS: Albumin 25% 25gram/100mL 25 GM/100 ML IV.SOLN IVPB SCH ×2 (01:46→07:57)
[2020-02-19] MEDS: Ipratropium/Albuterol Neb 3 ML IH SCH ×4 (03:56→21:45)
[2020-02-19] MEDS: Piperacillin/Tazobactam 3.375 GM in 0.9 % Sodium Chloride Mini Bag 100 ML IVPB SCH ×3 (05:41→21:17)
[2020-02-19] MEDS: MethylPREDNISolone 40 MG/ML VIAL IVP SCH ×2 (05:42→17:00)
[2020-02-19 07:57] LABS: BUN/Creatinine Ratio 47 (6-26); Blood Urea Nitrogen 54 mg/dL (8-23); Calcium 8.7 mg/dL (8.6-10.3); Carbon Dioxide 28 mEq/L (23-29); Chloride 105 mEq/L (98-107); Glucose 121 mg/dL (70-105); Osmolality,Calculated 310 (280-300); Potassium 3.7 mEq/L (3.5-5.1); Sodium 142 mEq/L (136-145); eGFR For African Americans > 60 (> 60); eGFR For Non-African Americans > 60 (> 60)
[2020-02-19] MEDS: Doxycycline 100 MG CAPSULE PO SCH ×2 (07:57→21:15)
[2020-02-19] MEDS: *HR* OxyCODONE Immed Rel 5 MG TABLET PO SCH ×3 (07:57→21:16)
[2020-02-19] MEDS: Apixaban 5 MG TABLET PO SCH ×2 (07:57→21:15)
[2020-02-19] MEDS: Isosorbide MONOnitrate (24 HR) 60 MG TAB.ER.24H PO SCH (07:57)
[2020-02-19] MEDS: Thiamine (B-1) 100 MG TABLET PO SCH ×2 (07:57→21:17)
[2020-02-19] MEDS: amLODIPine 5 MG TABLET PO SCH (07:57)
[2020-02-19] MEDS: Ascorbic Acid 500 MG TABLET PO SCH ×2 (07:57→21:16)
[2020-02-19] MEDS: Simethicone 80 MG TAB.CHEW PO SCH ×3 (07:57→15:32)
[2020-02-19] MEDS: Insulin LISPRO 300 UNITS/3 ML VIAL SQ SCH ×4 (08:01→21:15)
[2020-02-19] MEDS: Budesonide/Formoterol 160/4.5 1 PUFF INH IH SCH ×2 (08:42→21:45)
[2020-02-19] MEDS: Furosemide 40 MG/4 ML VIAL IVP SCH ×2 (09:26→21:16)
[2020-02-20 02:28] LABS: Hematocrit 22.9 % (37.5-50.1); Mean Corpuscular HGB Conc 30.6 g/dL (31.6-35.5); Mean Corpuscular Hemoglobin 26.9 pg (28.0-33.3); Mean Corpuscular Volume 88.1 fL (83.0-100.0); Mean Platelet Volume 10.7 fL (9.4-12.4); Platelet Count 242 K/mcL (140-400); Red Cell Distribution Width 17.8 % (11.5-14.5)
[2020-02-20 02:30] LABS: White Blood Count 4.5 K/mcL (4.3-11.1)
[2020-02-20 02:46] LABS: BUN/Creatinine Ratio 45 (6-26); Blood Urea Nitrogen 51 mg/dL (8-23); Calcium 8.9 mg/dL (8.6-10.3); Carbon Dioxide 31 mEq/L (23-29); Chloride 105 mEq/L (98-107); Glucose 140 mg/dL (70-105); Osmolality,Calculated 306 (280-300); Potassium 3.7 mEq/L (3.5-5.1); Sodium 140 mEq/L (136-145); eGFR For African Americans > 60 (> 60); eGFR For Non-African Americans > 60 (> 60)
[2020-02-20] MEDS: Ipratropium/Albuterol Neb 3 ML IH SCH ×4 (04:09→21:48)
[2020-02-20] MEDS: Piperacillin/Tazobactam 3.375 GM in 0.9 % Sodium Chloride Mini Bag 100 ML IVPB SCH (05:06)
[2020-02-20] MEDS: MethylPREDNISolone 40 MG/ML VIAL IVP SCH ×2 (05:07→17:11)
[2020-02-20] MEDS: Simethicone 80 MG TAB.CHEW PO SCH ×3 (08:27→15:58)
[2020-02-20] MEDS: amLODIPine 5 MG TABLET PO SCH (08:27)
[2020-02-20] MEDS: Isosorbide MONOnitrate (24 HR) 60 MG TAB.ER.24H PO SCH (08:27)
[2020-02-20] MEDS: Apixaban 5 MG TABLET PO SCH ×2 (08:28→21:15)
[2020-02-20] MEDS: Thiamine (B-1) 100 MG TABLET PO SCH ×2 (08:28→21:16)
[2020-02-20] MEDS: Ascorbic Acid 500 MG TABLET PO SCH ×2 (08:28→21:16)
[2020-02-20] MEDS: *HR* OxyCODONE Immed Rel 5 MG TABLET PO SCH ×3 (08:28→21:16)
[2020-02-20] MEDS: Insulin LISPRO 300 UNITS/3 ML VIAL SQ SCH ×4 (08:28→21:15)
[2020-02-20] MEDS: Budesonide/Formoterol 160/4.5 1 PUFF INH IH SCH ×2 (10:25→21:48)
[2020-02-20] MEDS ORDERED: Furosemide 40 MG/4 ML VIAL IVP SCH (21:15)
[2020-02-21] MEDS: Ipratropium/Albuterol Neb 3 ML IH SCH ×4 (03:41→22:18)
[2020-02-21] MEDS: MethylPREDNISolone 40 MG/ML VIAL IVP SCH ×2 (05:42→17:37)
[2020-02-21] MEDS ORDERED: Furosemide 40 MG TABLET PO SCH (08:00)
[2020-02-21] MEDS: Apixaban 5 MG TABLET PO SCH ×2 (08:33→20:52)
[2020-02-21] MEDS: amLODIPine 5 MG TABLET PO SCH (08:33)
[2020-02-21] MEDS: Ascorbic Acid 500 MG TABLET PO SCH ×2 (08:33→20:52)
[2020-02-21] MEDS: Isosorbide MONOnitrate (24 HR) 60 MG TAB.ER.24H PO SCH (08:33)
[2020-02-21] MEDS: Thiamine (B-1) 100 MG TABLET PO SCH ×2 (08:33→20:52)
[2020-02-21] MEDS: *HR* OxyCODONE Immed Rel 5 MG TABLET PO SCH ×3 (08:33→20:52)
[2020-02-21] MEDS: Simethicone 80 MG TAB.CHEW PO SCH ×3 (08:34→17:33)
[2020-02-21] MEDS: Insulin LISPRO 300 UNITS/3 ML VIAL SQ SCH ×4 (08:37→20:51)
[2020-02-21] MEDS: Budesonide/Formoterol 160/4.5 1 PUFF INH IH SCH ×2 (11:31→22:18)
[2020-02-21] MEDS ORDERED: 0.9 % Sodium Chloride 250 ML ONE (14:40)
[2020-02-21] MEDS: 0.9 % Sodium Chloride 250 ML IVC SCH (17:30)
[2020-02-21 20:25] LABS: Hematocrit 26.3 % (37.5-50.1); Hemoglobin 8.1 g/dL (12.9-16.9)
[2020-02-21] MEDS: Furosemide 40 MG/4 ML VIAL IVP SCH (20:52)
[2020-02-22] MEDS: Ipratropium/Albuterol Neb 3 ML IH SCH ×4 (03:13→21:17)
[2020-02-22 05:11] LABS: Eosinophils % 0.2 %; Hematocrit 25.1 % (37.5-50.1); Hemoglobin 7.7 g/dL (12.9-16.9); Immature Granulocytes % 0.4 % (0-4); Lymphocytes # 1.3 K/mcL (0.6-4.6); Lymphocytes % 25.5 %; Mean Corpuscular HGB Conc 30.7 g/dL (31.6-35.5); Mean Corpuscular Hemoglobin 26.6 pg (28.0-33.3); Mean Corpuscular Volume 86.6 fL (83.0-100.0); Mean Platelet Volume 10.3 fL (9.4-12.4); Monocytes # 0.2 K/mcL (0.0-1.3); Monocytes % 3.6 %; Neutrophils # 3.5 K/mcL (1.6-8.9); Platelet Count 209 K/mcL (140-400); Red Cell Distribution Width 16.6 % (11.5-14.5); Segmented Neutrophils % 70.3 %
[2020-02-22] MEDS: MethylPREDNISolone 40 MG/ML VIAL IVP SCH (05:32)
[2020-02-22] MEDS: Thiamine (B-1) 100 MG TABLET PO SCH ×2 (08:15→21:02)
[2020-02-22] MEDS: amLODIPine 5 MG TABLET PO SCH (08:15)
[2020-02-22] MEDS: Ascorbic Acid 500 MG TABLET PO SCH ×2 (08:16→21:02)
[2020-02-22] MEDS: Isosorbide MONOnitrate (24 HR) 60 MG TAB.ER.24H PO SCH (08:16)
[2020-02-22] MEDS: Apixaban 5 MG TABLET PO SCH ×2 (08:16→21:02)
[2020-02-22] MEDS: Simethicone 80 MG TAB.CHEW PO SCH ×3 (08:16→15:49)
[2020-02-22] MEDS: *HR* OxyCODONE Immed Rel 5 MG TABLET PO SCH ×3 (08:17→21:02)
[2020-02-22] MEDS: Furosemide 40 MG/4 ML VIAL IVP SCH ×2 (08:18→21:02)
[2020-02-22] MEDS: Insulin LISPRO 300 UNITS/3 ML VIAL SQ SCH ×4 (08:19→20:34)
[2020-02-22] MEDS: 0.9 % Sodium Chloride 250 ML IVC SCH (09:57)
[2020-02-22] MEDS: Budesonide/Formoterol 160/4.5 1 PUFF INH IH SCH ×2 (11:06→21:17)
[2020-02-22 14:19] LABS: Hematocrit 28.7 % (37.5-50.1); Hemoglobin 8.9 g/dL (12.9-16.9)
[2020-02-23] MEDS: Ipratropium/Albuterol Neb 3 ML IH SCH ×2 (04:10→10:04)
[2020-02-23 05:05] LABS: Hematocrit 29.6 % (37.5-50.1)
[2020-02-23] MEDS: Simethicone 80 MG TAB.CHEW PO SCH ×2 (06:08→10:41)
[2020-02-23 07:57] VITALS: BP 172/65
[2020-02-23] MEDS: Insulin LISPRO 300 UNITS/3 ML VIAL SQ SCH (09:17)
[2020-02-23] MEDS: Budesonide/Formoterol 160/4.5 1 PUFF INH IH SCH (09:21)
[2020-02-23] MEDS: Thiamine (B-1) 100 MG TABLET PO SCH (09:22)
[2020-02-23] MEDS: *HR* OxyCODONE Immed Rel 5 MG TABLET PO SCH (09:23)
[2020-02-23] MEDS: amLODIPine 5 MG TABLET PO SCH (09:23)
[2020-02-23] MEDS: Isosorbide MONOnitrate (24 HR) 60 MG TAB.ER.24H PO SCH (09:25)
[2020-02-23] MEDS: Ascorbic Acid 500 MG TABLET PO SCH (09:25)
[2020-02-23] MEDS: Apixaban 5 MG TABLET PO SCH (09:25)
[2020-02-23] MEDS: Furosemide 40 MG/4 ML VIAL IVP SCH (09:27)
== END 2020-02-23 11:28 | DRG 208 ==
LOC: EMEROOARM 16:56 → ICNU 19:40 → SUATTDRO 19:40 → INTOOBSV 19:40 → OBSVTOIN 19:40 → ICNU 21:04 → 2NNU 02-11 13:27 → 3ANU 02-21 11:55
PROVIDERS: ADMIT Family Medicine; ATTEND Internal Medicine

== ENCOUNTER 2021-08-10 16:50 | Inpatient (IN) ==
[2021-08-10] MEDS ORDERED: Ondansetron 4 MG/2 ML VIAL IVP ONE (17:27)
[2021-08-10] MEDS: 0.9 % Sodium Chloride 1,000 ML IVC SCH (17:59)
[2021-08-10] MEDS ORDERED: Pantoprazole 80 MG in 0.9 % Sodium Chloride 50 ML IVPB ONE (18:12)
[2021-08-10 18:34] LABS: INR 2.9; Prothrombin Time 32.9 Seconds (9.4-12.1)
[2021-08-10 18:36] LABS: Basophils % 0.5 %; Eosinophils # 0.3 K/mcL (0.0-0.6); Eosinophils % 4.3 %; Hematocrit 15.4 % (37.5-50.1); Immature Granulocytes % 0.2 % (0-4); Lymphocytes # 1.7 K/mcL (0.6-4.6); Mean Corpuscular HGB Conc 26.6 g/dL (31.6-35.5); Mean Corpuscular Hemoglobin 17.4 pg (28.0-33.3); Mean Corpuscular Volume 65.5 fL (83.0-100.0); Mean Platelet Volume 11.5 fL (9.4-12.4); Monocytes # 0.3 K/mcL (0.0-1.3); Monocytes % 5.8 %; Neutrophils # 3.5 K/mcL (1.6-8.9); Platelet Count 188 K/mcL (140-400); Red Blood Count 2.35 M/mcL (4.19-5.50); Segmented Neutrophils % 60.2 %; White Blood Count 5.8 K/mcL (4.3-11.1)
[2021-08-10 18:37] LABS: Activated Partial Thrombo Time 50.6 Seconds (26.0-36.0)
[2021-08-10 18:44] LABS: Hemoglobin 4.1 g/dL (12.9-16.9)
[2021-08-10 18:48] LABS: Calcium 8.3 mg/dL (8.6-10.3); Potassium 4.7 mEq/L (3.5-5.1)
[2021-08-10 18:55] LABS: Platelet Estimate Normal (Normal)
[2021-08-10 18:56] LABS: Anisocytosis 1+ (Not Present); Hypochromasia Present (Not Present); Large Platelets Present (Not Present); Poikilocytosis 2+ (Not Present)
[2021-08-10 20:19] LABS: Albumin 3.4 g/dL (3.5-5.7); Albumin/Globulin Ratio 1.4 (1.1-2.2); Bilirubin,Direct 0.1 mg/dL (0.0-0.2); Bilirubin,Indirect 0.3 mg/dL (0.0-1.0); Bilirubin,Total 0.4 mg/dL (0.3-1.0); Globulin 2.5 g/dL (2.4-3.5); Total Protein 5.9 g/dL (6.4-8.9)
[2021-08-10] MEDS ORDERED: Azithromycin 500 MG in 0.9 % Sodium Chloride 250 ML IVPB ONE (20:28)
[2021-08-10] MEDS ORDERED: cefTRIAXone 1,000 MG in 0.9 % Sodium Chloride Mini Bag 100 ML IVPB ONE (20:28)
[2021-08-10] MEDS ORDERED: Ondansetron 4 MG/2 ML VIAL IVP PRN (21:38)
[2021-08-10] MEDS ORDERED: Naloxone 0.4 MG/ML INJ IVP PRN (21:38)
[2021-08-11 00:01] LABS: Adenovirus Not Detected (Not Detect); Bordetella Pertussis Not Detected (Not Detect); Chlamydophila pneumoniae Not Detected (Not Detect); Coronavirus 229E Not Detected (Not Detect); Coronavirus HKU1 Not Detected (Not Detect); Coronavirus NL63 Not Detected (Not Detect); Coronavirus OC43 Not Detected (Not Detect); Human Metapneumovirus Not Detected (Not Detect); Human Rhinovirus/Enterovirus Not Detected (Not Detect); Influenza A Subtype 2009 H1 Not Detected (Not Detect); Influenza B Not Detected (Not Detect); Mycoplasma pneumoniae Not Detected (Not Detect); Parainfluenza Virus 1 Not Detected (Not Detect); Parainfluenza Virus 2 Not Detected (Not Detect); Parainfluenza Virus 3 Not Detected (Not Detect); Parainfluenza Virus 4 Not Detected (Not Detect); Respiratory Syncytial Virus Not Detected (Not Detect); SARS-CoV-2 Not Detected (Not Detect)
[2021-08-11 01:45] LABS: INR 2.5; Prothrombin Time 28.4 Seconds (9.4-12.1)
[2021-08-11 02:08] LABS: Alanine Aminotransferase < 3 Units/L (7-52); Albumin 3.2 g/dL (3.5-5.7); Albumin/Globulin Ratio 1.2 (1.1-2.2); Alkaline Phosphatase 78 Units/L (34-104); Aspartate Amino Transferase 17 Units/L (13-39); BUN/Creatinine Ratio 18 (6-26); Bilirubin,Total 0.6 mg/dL (0.3-1.0); Blood Urea Nitrogen 27 mg/dL (8-23); Carbon Dioxide 21 mEq/L (23-29); Chloride 106 mEq/L (98-107); Globulin 2.6 g/dL (2.4-3.5); Glucose 124 mg/dL (70-105); Osmolality,Calculated 291 (280-300); Potassium 4.8 mEq/L (3.5-5.1); Sodium 137 mEq/L (136-145); Total Protein 5.8 g/dL (6.4-8.9); eGFR For African Americans 55 (> 60); eGFR For Non-African Americans 45 (> 60)
[2021-08-11 04:07] LABS: C-Reactive Protein 30 mg/L (Less than 10)
[2021-08-11] MEDS: Pantoprazole 40 MG in 0.9 % Sodium Chloride Mini Bag 100 ML IVC SCH ×6 (04:20→21:46)
[2021-08-11 06:32] LABS: Hematocrit 22.2 % (37.5-50.1); Hemoglobin 6.2 g/dL (12.9-16.9); Immature Platelets 6.9 % (1.1-6.1); Mean Corpuscular HGB Conc 27.9 g/dL (31.6-35.5); Mean Corpuscular Hemoglobin 20.5 pg (28.0-33.3); Mean Corpuscular Volume 73.3 fL (83.0-100.0); Mean Platelet Volume 11.5 fL (9.4-12.4); Red Blood Count 3.03 M/mcL (4.19-5.50)
[2021-08-11] MEDS ORDERED: 0.9 % Sodium Chloride 250 ML IVC SCH (10:00)
[2021-08-11] MEDS: 0.9 % Sodium Chloride 1,000 ML IVC SCH (11:37)
[2021-08-11] MEDS: cefTRIAXone 1,000 MG in 0.9 % Sodium Chloride Mini Bag 100 ML IVPB SCH (11:37)
[2021-08-11] MEDS: Azithromycin 500 MG in 0.9 % Sodium Chloride 250 ML IVPB SCH (11:45)
[2021-08-11 19:30] LABS: Hematocrit 23.5 % (37.5-50.1); Hemoglobin 6.9 g/dL (12.9-16.9)
[2021-08-12 02:25] LABS: Basophils % 0.8 %; Eosinophils # 0.2 K/mcL (0.0-0.6); Eosinophils % 4.2 %; Hematocrit 23.6 % (37.5-50.1); Immature Granulocytes % 0.3 % (0-4); Immature Platelets 4.5 % (1.1-6.1); Lymphocytes # 1.1 K/mcL (0.6-4.6); Mean Corpuscular HGB Conc 29.7 g/dL (31.6-35.5); Mean Corpuscular Hemoglobin 22.2 pg (28.0-33.3); Mean Corpuscular Volume 74.7 fL (83.0-100.0); Mean Platelet Volume 11.2 fL (9.4-12.4); Monocytes # 0.2 K/mcL (0.0-1.3); Monocytes % 6.1 %; Neutrophils # 2.3 K/mcL (1.6-8.9); Platelet Count 153 K/mcL (140-400); Red Blood Count 3.16 M/mcL (4.19-5.50); Red Cell Distribution Width 22.7 % (11.5-14.5); Segmented Neutrophils % 59.6 %; White Blood Count 3.8 K/mcL (4.3-11.1)
[2021-08-12] MEDS: Pantoprazole 40 MG in 0.9 % Sodium Chloride Mini Bag 100 ML IVC SCH ×4 (02:35→17:06)
[2021-08-12 02:41] LABS: BUN/Creatinine Ratio 14 (6-26); Blood Urea Nitrogen 18 mg/dL (8-23); Calcium 8.6 mg/dL (8.6-10.3); Carbon Dioxide 25 mEq/L (23-29); Chloride 110 mEq/L (98-107); Glucose 118 mg/dL (70-105); Osmolality,Calculated 293 (280-300); Potassium 4.4 mEq/L (3.5-5.1); Sodium 140 mEq/L (136-145); eGFR For African Americans > 60 (> 60); eGFR For Non-African Americans 53 (> 60)
[2021-08-12] MEDS ORDERED: Acetaminophen 325 MG TABLET PO PRN (07:21)
[2021-08-12] MEDS: Mag Hydrox/Al Hydrox/Simeth 30 ML UDC PO SCH (08:43)
[2021-08-12] MEDS: lisinopriL 10 MG TABLET PO SCH (08:43)
[2021-08-12] MEDS: Simethicone 80 MG TAB.CHEW PO SCH ×2 (08:44→16:55)
[2021-08-12] MEDS: Pregabalin 75 MG CAPSULE PO SCH ×2 (08:44→19:49)
[2021-08-12] MEDS: Isosorbide MONOnitrate (24 HR) 60 MG TAB.ER.24H PO SCH (08:44)
[2021-08-12] MEDS: 0.9 % Sodium Chloride 1,000 ML IVC SCH ×4 (08:44→19:49)
[2021-08-12] MEDS: hydrALAZINE 25 MG TABLET PO SCH ×4 (08:44→19:49)
[2021-08-12] MEDS: Furosemide 40 MG TABLET PO SCH (08:44)
[2021-08-12] MEDS: cefTRIAXone 1,000 MG in 0.9 % Sodium Chloride Mini Bag 100 ML IVPB SCH (08:45)
[2021-08-12] MEDS: (Mirabegron [Myrbetriq] 50 MG Tab.Er.24h) PO SCH (08:45)
[2021-08-12] MEDS: Azithromycin 500 MG in 0.9 % Sodium Chloride 250 ML IVPB SCH (09:36)
[2021-08-12] MEDS: Pantoprazole 40 MG VIAL IVP SCH (17:29)
[2021-08-13] MEDS: Pantoprazole 40 MG VIAL IVP SCH ×2 (05:13→16:50)
[2021-08-13 06:15] LABS: Hemoglobin 7.3 g/dL (12.9-16.9); Immature Granulocytes % 0.7 % (0-4); Red Cell Distribution Width 23.6 % (11.5-14.5)
[2021-08-13 06:18] LABS: Basophils % 0.5 %; Eosinophils # 0.1 K/mcL (0.0-0.6); Eosinophils % 2.4 %; Hematocrit 26.6 % (37.5-50.1); Immature Platelets 5.9 % (1.1-6.1); Lymphocytes # 0.9 K/mcL (0.6-4.6); Lymphocytes % 21.9 %; Mean Corpuscular HGB Conc 27.4 g/dL (31.6-35.5); Mean Corpuscular Volume 76.4 fL (83.0-100.0); Mean Platelet Volume 11.8 fL (9.4-12.4); Monocytes # 0.2 K/mcL (0.0-1.3); Monocytes % 4.3 %; Platelet Count 152 K/mcL (140-400); Red Blood Count 3.48 M/mcL (4.19-5.50); Segmented Neutrophils % 70.2 %; White Blood Count 4.2 K/mcL (4.3-11.1)
[2021-08-13 06:24] LABS: BUN/Creatinine Ratio 12 (6-26); Blood Urea Nitrogen 12 mg/dL (8-23); Calcium 8.9 mg/dL (8.6-10.3); Carbon Dioxide 25 mEq/L (23-29); Chloride 111 mEq/L (98-107); Glucose 126 mg/dL (70-105); Osmolality,Calculated 295 (280-300); Potassium 4.1 mEq/L (3.5-5.1); Sodium 142 mEq/L (136-145); eGFR For African Americans > 60 (> 60); eGFR For Non-African Americans > 60 (> 60)
[2021-08-13] MEDS: cefTRIAXone 1,000 MG in 0.9 % Sodium Chloride Mini Bag 100 ML IVPB SCH (08:09)
[2021-08-13] MEDS: Mag Hydrox/Al Hydrox/Simeth 30 ML UDC PO SCH (08:10)
[2021-08-13] MEDS: Isosorbide MONOnitrate (24 HR) 60 MG TAB.ER.24H PO SCH (08:10)
[2021-08-13] MEDS: Azithromycin 500 MG in 0.9 % Sodium Chloride 250 ML IVPB SCH (08:10)
[2021-08-13] MEDS: Simethicone 80 MG TAB.CHEW PO SCH ×2 (08:10→16:50)
[2021-08-13] MEDS: lisinopriL 10 MG TABLET PO SCH (08:10)
[2021-08-13] MEDS: Pregabalin 75 MG CAPSULE PO SCH ×2 (08:10→21:07)
[2021-08-13] MEDS: (Mirabegron [Myrbetriq] 50 MG Tab.Er.24h) PO SCH (08:11)
[2021-08-13] MEDS: hydrALAZINE 25 MG TABLET PO SCH ×4 (08:11→21:07)
[2021-08-13] MEDS: Furosemide 40 MG TABLET PO SCH (08:11)
[2021-08-13] MEDS: Lactulose Oral Soln 20 GM/30 ML UDC PO SCH (08:14)
[2021-08-13 08:24] LABS: Anisocytosis 3+ (Not Present); Hypochromasia Present (Not Present); Ovalocytes 1+ (Not Present); Polychromasia 1+ (Not Present); Tear Drop Cells 1+ (Not Present)
[2021-08-13 08:25] LABS: Platelet Estimate Normal (Normal)
[2021-08-13 11:22] LABS: Ferritin 16 ng/mL (20-250); Iron < 10 mcg/dL (65-175); Transferrin 292 mg/dL (203-362)
[2021-08-13] MEDS ORDERED: SODIUM CHLORIDE/NAHCO3/KCL/PEG 4,000 ML SOLN.RECON PO ONE (17:00)
[2021-08-13] MEDS ORDERED: *HR* OxyCODONE Immed Rel 5 MG TABLET PO PRN (22:50)
[2021-08-14 01:05] LABS: Hematocrit 26.7 % (37.5-50.1); Hemoglobin 7.4 g/dL (12.9-16.9); Immature Granulocytes % 0.4 % (0-4); Mean Corpuscular HGB Conc 27.7 g/dL (31.6-35.5); Platelet Count 145 K/mcL (140-400)
[2021-08-14 01:07] LABS: Basophils % 0.4 %; Eosinophils # 0.2 K/mcL (0.0-0.6); Eosinophils % 4.7 %; Immature Platelets 4.4 % (1.1-6.1); Lymphocytes # 1.1 K/mcL (0.6-4.6); Lymphocytes % 22.3 %; Mean Corpuscular Hemoglobin 21.3 pg (28.0-33.3); Mean Corpuscular Volume 76.7 fL (83.0-100.0); Mean Platelet Volume 11.6 fL (9.4-12.4); Monocytes # 0.3 K/mcL (0.0-1.3); Monocytes % 5.3 %; Red Blood Count 3.48 M/mcL (4.19-5.50); Segmented Neutrophils % 66.9 %; White Blood Count 4.7 K/mcL (4.3-11.1)
[2021-08-14 01:09] LABS: Neutrophils # 3.1 K/mcL (1.6-8.9)
[2021-08-14 01:25] LABS: BUN/Creatinine Ratio 9 (6-26); Blood Urea Nitrogen 8 mg/dL (8-23); Calcium 8.5 mg/dL (8.6-10.3); Carbon Dioxide 21 mEq/L (23-29); Chloride 112 mEq/L (98-107); Glucose 110 mg/dL (70-105); Osmolality,Calculated 293 (280-300); Potassium 3.6 mEq/L (3.5-5.1); Sodium 142 mEq/L (136-145); eGFR For African Americans > 60 (> 60); eGFR For Non-African Americans > 60 (> 60)
[2021-08-14 01:47] LABS: Folate 5.4 ng/mL (3.0-16.0)
[2021-08-14 02:20] LABS: Anisocytosis 3+ (Not Present); Hypochromasia Present (Not Present); Poikilocytosis 1+ (Not Present); Tear Drop Cells 1+ (Not Present)
[2021-08-14 02:21] LABS: Platelet Estimate Normal (Normal)
[2021-08-14] MEDS: Pantoprazole 40 MG VIAL IVP SCH ×2 (05:44→16:52)
[2021-08-14] MEDS ORDERED: 0.9 % Sodium Chloride 1,000 ML IVC SCH (06:00)
[2021-08-14] MEDS: Furosemide 40 MG TABLET PO SCH (08:35)
[2021-08-14] MEDS: hydrALAZINE 25 MG TABLET PO SCH ×4 (08:35→20:43)
[2021-08-14] MEDS: Isosorbide MONOnitrate (24 HR) 60 MG TAB.ER.24H PO SCH (08:35)
[2021-08-14] MEDS: Simethicone 80 MG TAB.CHEW PO SCH ×2 (08:35→16:51)
[2021-08-14] MEDS: Pregabalin 75 MG CAPSULE PO SCH ×2 (08:35→20:43)
[2021-08-14] MEDS: cefTRIAXone 1,000 MG in 0.9 % Sodium Chloride Mini Bag 100 ML IVPB SCH (08:35)
[2021-08-14] MEDS: Azithromycin 500 MG in 0.9 % Sodium Chloride 250 ML IVPB SCH (08:35)
[2021-08-14] MEDS: lisinopriL 10 MG TABLET PO SCH (08:35)
[2021-08-14] MEDS: Mag Hydrox/Al Hydrox/Simeth 30 ML UDC PO SCH (08:54)
[2021-08-14] MEDS ORDERED: Acetaminophen 325 MG TABLET PO PRN (12:06)
[2021-08-14] MEDS ORDERED: Lidocaine -MPF 2% 5 ML VIAL ONE (12:35)
[2021-08-14] MEDS ORDERED: *HR* Propofol 200 MG/20 ML VIAL IVP ONE (12:58)
[2021-08-14] MEDS ORDERED: Isosorbide MONOnitrate (24 HR) 30 MG TAB.ER.24H PO ONE (13:00)
[2021-08-14] MEDS ORDERED: *HR* FentaNYL (PF) 100 MCG/2 ML VIAL ONE (15:40)
[2021-08-14] MEDS: *HR* OxyCODONE Immed Rel 5 MG TABLET PO PRN (20:50)
[2021-08-15 01:18] LABS: Basophils % 0.5 %; Hematocrit 23.8 % (37.5-50.1); Immature Granulocytes % 0.3 % (0-4)
[2021-08-15 01:20] LABS: Eosinophils # 0.2 K/mcL (0.0-0.6); Eosinophils % 4.6 %; Hemoglobin 6.6 g/dL (12.9-16.9); Immature Platelets 4.7 % (1.1-6.1); Lymphocytes # 1.1 K/mcL (0.6-4.6); Lymphocytes % 27.2 %; Mean Corpuscular HGB Conc 27.7 g/dL (31.6-35.5); Mean Corpuscular Hemoglobin 21.3 pg (28.0-33.3); Mean Corpuscular Volume 76.8 fL (83.0-100.0); Mean Platelet Volume 11.6 fL (9.4-12.4); Monocytes # 0.2 K/mcL (0.0-1.3); Monocytes % 5.7 %; Neutrophils # 2.4 K/mcL (1.6-8.9); Platelet Count 132 K/mcL (140-400); Red Cell Distribution Width 24.3 % (11.5-14.5); Segmented Neutrophils % 61.7 %; White Blood Count 3.9 K/mcL (4.3-11.1)
[2021-08-15 01:35] LABS: BUN/Creatinine Ratio 12 (6-26); Blood Urea Nitrogen 9 mg/dL (8-23); Calcium 8.1 mg/dL (8.6-10.3); Carbon Dioxide 23 mEq/L (23-29); Chloride 110 mEq/L (98-107); Glucose 97 mg/dL (70-105); Osmolality,Calculated 293 (280-300); Potassium 3.5 mEq/L (3.5-5.1); Sodium 142 mEq/L (136-145); eGFR For African Americans > 60 (> 60); eGFR For Non-African Americans > 60 (> 60)
[2021-08-15 01:57] LABS: Anisocytosis 2+ (Not Present); Hypochromasia Present (Not Present)
[2021-08-15 01:58] LABS: Platelet Estimate Slight Decrease (Normal)
[2021-08-15] MEDS: Pantoprazole 40 MG VIAL IVP SCH ×2 (05:54→18:06)
[2021-08-15] MEDS ORDERED: Iron Sucrose Complex 400 MG in 0.9 % Sodium Chloride 250 ML IVPB ONE (07:53)
[2021-08-15] MEDS: Isosorbide MONOnitrate (24 HR) 30 MG TAB.ER.24H PO SCH (09:16)
[2021-08-15] MEDS: Pregabalin 75 MG CAPSULE PO SCH ×2 (09:16→19:39)
[2021-08-15] MEDS: hydrALAZINE 25 MG TABLET PO SCH ×4 (09:16→19:40)
[2021-08-15] MEDS: Furosemide 40 MG TABLET PO SCH ×2 (09:16→19:42)
[2021-08-15] MEDS: lisinopriL 10 MG TABLET PO SCH (09:16)
[2021-08-15] MEDS: Simethicone 80 MG TAB.CHEW PO SCH ×2 (09:16→18:06)
[2021-08-15] MEDS: Azithromycin 500 MG in 0.9 % Sodium Chloride 250 ML IVPB SCH (09:17)
[2021-08-15] MEDS: cefTRIAXone 1,000 MG in 0.9 % Sodium Chloride Mini Bag 100 ML IVPB SCH (09:20)
[2021-08-15] MEDS: Mag Hydrox/Al Hydrox/Simeth 30 ML UDC PO SCH (09:34)
[2021-08-15] MEDS: Lactulose Oral Soln 20 GM/30 ML UDC PO SCH (09:34)
[2021-08-15] MEDS: amLODIPine 5 MG TABLET PO SCH (12:18)
[2021-08-15 17:15] LABS: Hemoglobin 7.9 g/dL (12.9-16.9)
[2021-08-15] MEDS: *HR* OxyCODONE Immed Rel 5 MG TABLET PO PRN (18:06)
[2021-08-16] MEDS: *HR* OxyCODONE Immed Rel 5 MG TABLET PO PRN ×3 (02:24→22:31)
[2021-08-16 03:01] LABS: Basophils % 0.7 %; Immature Granulocytes % 0.5 % (0-4)
[2021-08-16 03:03] LABS: Eosinophils # 0.2 K/mcL (0.0-0.6); Eosinophils % 5.7 %; Hematocrit 27.3 % (37.5-50.1); Hemoglobin 8.1 g/dL (12.9-16.9); Immature Platelets 4.9 % (1.1-6.1); Lymphocytes % 22.9 %; Mean Corpuscular HGB Conc 29.7 g/dL (31.6-35.5); Mean Corpuscular Hemoglobin 22.3 pg (28.0-33.3); Monocytes # 0.3 K/mcL (0.0-1.3); Monocytes % 6.4 %; Neutrophils # 2.7 K/mcL (1.6-8.9); Platelet Count 144 K/mcL (140-400); Red Blood Count 3.64 M/mcL (4.19-5.50); Red Cell Distribution Width 23.9 % (11.5-14.5); Segmented Neutrophils % 63.8 %; White Blood Count 4.2 K/mcL (4.3-11.1)
[2021-08-16 03:24] LABS: BUN/Creatinine Ratio 8 (6-26); Blood Urea Nitrogen 6 mg/dL (8-23); Calcium 8.5 mg/dL (8.6-10.3); Carbon Dioxide 25 mEq/L (23-29); Chloride 106 mEq/L (98-107); Glucose 94 mg/dL (70-105); Osmolality,Calculated 291 (280-300); Sodium 142 mEq/L (136-145); eGFR For African Americans > 60 (> 60); eGFR For Non-African Americans > 60 (> 60)
[2021-08-16 03:32] LABS: Anisocytosis 1+ (Not Present); Hypochromasia Present (Not Present); Platelet Estimate Normal (Normal); Poikilocytosis 1+ (Not Present); Smudge Cells Present (Not Present)
[2021-08-16] MEDS: Pantoprazole 40 MG VIAL IVP SCH ×2 (05:31→16:42)
[2021-08-16] MEDS: 0.9 % Sodium Chloride 1,000 ML IVC SCH (07:06)
[2021-08-16] MEDS: cefTRIAXone 1,000 MG in 0.9 % Sodium Chloride Mini Bag 100 ML IVPB SCH (09:12)
[2021-08-16] MEDS ORDERED: Azithromycin 500 MG in 0.9 % Sodium Chloride 250 ML IVPB ONE (11:00)
[2021-08-16] MEDS: Mag Hydrox/Al Hydrox/Simeth 30 ML UDC PO SCH (11:11)
[2021-08-16] MEDS: hydrALAZINE 25 MG TABLET PO SCH ×4 (11:11→22:32)
[2021-08-16] MEDS: Simethicone 80 MG TAB.CHEW PO SCH ×2 (11:12→16:41)
[2021-08-16] MEDS: amLODIPine 5 MG TABLET PO SCH (11:12)
[2021-08-16] MEDS: Cholecalciferol (D-3) 1,000 UNIT (25MCG) TABLET PO SCH (11:12)
[2021-08-16] MEDS: Isosorbide MONOnitrate (24 HR) 30 MG TAB.ER.24H PO SCH (11:12)
[2021-08-16] MEDS: Furosemide 40 MG TABLET PO SCH ×2 (11:13→22:32)
[2021-08-16] MEDS: Pregabalin 75 MG CAPSULE PO SCH ×2 (11:13→22:31)
[2021-08-16] MEDS: lisinopriL 10 MG TABLET PO SCH (11:13)
[2021-08-16] MEDS: Azithromycin 500 MG in 0.9 % Sodium Chloride 250 ML IVPB SCH (11:25)
[2021-08-17] MEDS: Pantoprazole 40 MG VIAL IVP SCH (04:51)
[2021-08-17] MEDS: *HR* OxyCODONE Immed Rel 5 MG TABLET PO PRN ×3 (04:52→22:21)
[2021-08-17 08:19] LABS: Immature Granulocytes % 0.2 % (0-4); Mean Corpuscular Volume 74.8 fL (83.0-100.0)
[2021-08-17 08:20] LABS: Basophils % 0.7 %; Eosinophils # 0.2 K/mcL (0.0-0.6); Eosinophils % 3.7 %; Hematocrit 29.9 % (37.5-50.1); Hemoglobin 8.9 g/dL (12.9-16.9); Immature Platelets 5.6 % (1.1-6.1); Lymphocytes # 1.1 K/mcL (0.6-4.6); Lymphocytes % 27.6 %; Mean Corpuscular HGB Conc 29.8 g/dL (31.6-35.5); Mean Corpuscular Hemoglobin 22.3 pg (28.0-33.3); Mean Platelet Volume 11.1 fL (9.4-12.4); Monocytes # 0.3 K/mcL (0.0-1.3); Monocytes % 6.5 %; Neutrophils # 2.5 K/mcL (1.6-8.9); Platelet Count 140 K/mcL (140-400); Red Cell Distribution Width 24.7 % (11.5-14.5); Segmented Neutrophils % 61.3 %
[2021-08-17] MEDS: Isosorbide MONOnitrate (24 HR) 30 MG TAB.ER.24H PO SCH (08:24)
[2021-08-17] MEDS: amLODIPine 5 MG TABLET PO SCH (08:25)
[2021-08-17] MEDS: Pregabalin 75 MG CAPSULE PO SCH ×2 (08:25→21:04)
[2021-08-17] MEDS: lisinopriL 10 MG TABLET PO SCH (08:25)
[2021-08-17] MEDS: Cholecalciferol (D-3) 1,000 UNIT (25MCG) TABLET PO SCH (08:25)
[2021-08-17] MEDS: Furosemide 40 MG TABLET PO SCH ×2 (08:25→21:03)
[2021-08-17] MEDS: hydrALAZINE 25 MG TABLET PO SCH ×4 (08:25→21:03)
[2021-08-17] MEDS: Simethicone 80 MG TAB.CHEW PO SCH ×2 (08:25→16:18)
[2021-08-17] MEDS: Mag Hydrox/Al Hydrox/Simeth 30 ML UDC PO SCH (08:36)
[2021-08-17] MEDS: Lactulose Oral Soln 20 GM/30 ML UDC PO SCH (08:36)
[2021-08-17 08:51] LABS: BUN/Creatinine Ratio 9 (6-26); Blood Urea Nitrogen 6 mg/dL (8-23); Calcium 8.6 mg/dL (8.6-10.3); Carbon Dioxide 27 mEq/L (23-29); Chloride 104 mEq/L (98-107); Glucose 94 mg/dL (70-105); Osmolality,Calculated 291 (280-300); Potassium 3.2 mEq/L (3.5-5.1); Sodium 142 mEq/L (136-145); eGFR For African Americans > 60 (> 60); eGFR For Non-African Americans > 60 (> 60)
[2021-08-17 09:54] LABS: Anisocytosis 3+ (Not Present)
[2021-08-17 09:55] LABS: Hypochromasia Present (Not Present); Platelet Estimate Normal (Normal); Polychromasia 1+ (Not Present)
[2021-08-17 11:29] LABS: Hematocrit 29.7 % (37.5-50.1); Hemoglobin 8.7 g/dL (12.9-16.9)
[2021-08-17] MEDS ORDERED: Heparin 1,000 UNITS/500 mL 500 ML ONE (17:39)
[2021-08-18 06:30] LABS: Hemoglobin 8.4 g/dL (12.9-16.9); Immature Platelets 5.6 % (1.1-6.1); Mean Corpuscular Hemoglobin 21.9 pg (28.0-33.3); Mean Corpuscular Volume 75.7 fL (83.0-100.0); Platelet Count 148 K/mcL (140-400); Red Blood Count 3.83 M/mcL (4.19-5.50); Red Cell Distribution Width 25.9 % (11.5-14.5); White Blood Count 4.1 K/mcL (4.3-11.1)
[2021-08-18 06:49] LABS: BUN/Creatinine Ratio 12 (6-26); Blood Urea Nitrogen 8 mg/dL (8-23); Calcium 8.7 mg/dL (8.6-10.3); Carbon Dioxide 30 mEq/L (23-29); Chloride 103 mEq/L (98-107); Glucose 84 mg/dL (70-105); Osmolality,Calculated 294 (280-300); Potassium 3.1 mEq/L (3.5-5.1); Sodium 143 mEq/L (136-145); eGFR For African Americans > 60 (> 60); eGFR For Non-African Americans > 60 (> 60)
[2021-08-18] MEDS ORDERED: Iron Sucrose Complex 400 MG in 0.9 % Sodium Chloride 250 ML IVPB ONE (07:08)
[2021-08-18] MEDS: *HR* OxyCODONE Immed Rel 5 MG TABLET PO PRN ×2 (09:20→17:28)
[2021-08-18] MEDS: Isosorbide MONOnitrate (24 HR) 30 MG TAB.ER.24H PO SCH (09:21)
[2021-08-18] MEDS: Cholecalciferol (D-3) 1,000 UNIT (25MCG) TABLET PO SCH (09:21)
[2021-08-18] MEDS: Furosemide 40 MG TABLET PO SCH ×2 (09:21→20:37)
[2021-08-18] MEDS: amLODIPine 5 MG TABLET PO SCH (09:21)
[2021-08-18] MEDS: Pregabalin 75 MG CAPSULE PO SCH ×2 (09:22→20:37)
[2021-08-18] MEDS: lisinopriL 10 MG TABLET PO SCH (09:22)
[2021-08-18] MEDS: Simethicone 80 MG TAB.CHEW PO SCH ×2 (09:22→17:28)
[2021-08-18] MEDS: hydrALAZINE 25 MG TABLET PO SCH ×4 (09:23→20:37)
[2021-08-18] MEDS: Mag Hydrox/Al Hydrox/Simeth 30 ML UDC PO SCH (09:45)
[2021-08-19 05:31] LABS: Hemoglobin 8.5 g/dL (12.9-16.9)
[2021-08-19 05:33] LABS: Hematocrit 29.2 % (37.5-50.1); Immature Platelets 5.5 % (1.1-6.1); Mean Corpuscular HGB Conc 29.1 g/dL (31.6-35.5); Mean Corpuscular Hemoglobin 22.3 pg (28.0-33.3); Mean Corpuscular Volume 76.4 fL (83.0-100.0); Platelet Count 139 K/mcL (140-400); Red Blood Count 3.82 M/mcL (4.19-5.50); Red Cell Distribution Width 26.8 % (11.5-14.5); White Blood Count 3.1 K/mcL (4.3-11.1)
[2021-08-19 05:55] LABS: BUN/Creatinine Ratio 16 (6-26); Blood Urea Nitrogen 11 mg/dL (8-23); Calcium 8.9 mg/dL (8.6-10.3); Carbon Dioxide 34 mEq/L (23-29); Chloride 102 mEq/L (98-107); Glucose 108 mg/dL (70-105); Magnesium 1.5 mg/dL (1.6-2.6); Osmolality,Calculated 296 (280-300); Potassium 3.3 mEq/L (3.5-5.1); Sodium 143 mEq/L (136-145); eGFR For African Americans > 60 (> 60); eGFR For Non-African Americans > 60 (> 60)
[2021-08-19] MEDS: Mag Hydrox/Al Hydrox/Simeth 30 ML UDC PO SCH (10:09)
[2021-08-19] MEDS: Isosorbide MONOnitrate (24 HR) 30 MG TAB.ER.24H PO SCH (10:09)
[2021-08-19] MEDS: Pregabalin 75 MG CAPSULE PO SCH ×2 (10:10→20:08)
[2021-08-19] MEDS: amLODIPine 5 MG TABLET PO SCH (10:11)
[2021-08-19] MEDS: lisinopriL 10 MG TABLET PO SCH (10:12)
[2021-08-19] MEDS: Magnesium Oxide 400 MG TABLET PO SCH ×2 (10:12→20:07)
[2021-08-19] MEDS: Cholecalciferol (D-3) 1,000 UNIT (25MCG) TABLET PO SCH (10:12)
[2021-08-19] MEDS: hydrALAZINE 25 MG TABLET PO SCH ×4 (10:12→20:08)
[2021-08-19] MEDS: Simethicone 80 MG TAB.CHEW PO SCH ×2 (10:12→18:30)
[2021-08-19] MEDS: Furosemide 40 MG TABLET PO SCH ×2 (10:12→20:08)
[2021-08-19] MEDS: *HR* OxyCODONE Immed Rel 5 MG TABLET PO PRN ×2 (10:19→20:08)
[2021-08-19] MEDS: Ipratropium/Albuterol Neb 3 ML IH PRN (10:35)
[2021-08-20 00:58] LABS: Red Blood Count 3.86 M/mcL (4.19-5.50)
[2021-08-20 01:00] LABS: Hematocrit 29.8 % (37.5-50.1); Hemoglobin 8.6 g/dL (12.9-16.9); Immature Platelets 6.3 % (1.1-6.1); Mean Corpuscular HGB Conc 28.9 g/dL (31.6-35.5); Mean Corpuscular Hemoglobin 22.3 pg (28.0-33.3); Mean Corpuscular Volume 77.2 fL (83.0-100.0); Platelet Count 137 K/mcL (140-400); White Blood Count 4.7 K/mcL (4.3-11.1)
[2021-08-20 01:12] LABS: BUN/Creatinine Ratio 19 (6-26); Blood Urea Nitrogen 14 mg/dL (8-23); Calcium 8.3 mg/dL (8.6-10.3); Carbon Dioxide 29 mEq/L (23-29); Chloride 103 mEq/L (98-107); Glucose 110 mg/dL (70-105); Osmolality,Calculated 293 (280-300); Potassium 3.4 mEq/L (3.5-5.1); Sodium 141 mEq/L (136-145); eGFR For African Americans > 60 (> 60); eGFR For Non-African Americans > 60 (> 60)
[2021-08-20] MEDS: Simethicone 80 MG TAB.CHEW PO SCH ×2 (08:07→16:37)
[2021-08-20] MEDS: Pregabalin 75 MG CAPSULE PO SCH ×2 (08:07→21:46)
[2021-08-20] MEDS: Cholecalciferol (D-3) 1,000 UNIT (25MCG) TABLET PO SCH (08:08)
[2021-08-20] MEDS: hydrALAZINE 25 MG TABLET PO SCH ×4 (08:08→21:46)
[2021-08-20] MEDS: amLODIPine 5 MG TABLET PO SCH (08:08)
[2021-08-20] MEDS: lisinopriL 10 MG TABLET PO SCH (08:08)
[2021-08-20] MEDS: Isosorbide MONOnitrate (24 HR) 30 MG TAB.ER.24H PO SCH (08:08)
[2021-08-20] MEDS: Furosemide 40 MG TABLET PO SCH ×2 (08:08→21:47)
[2021-08-20] MEDS: Magnesium Oxide 400 MG TABLET PO SCH (08:09)
[2021-08-20] MEDS: Mag Hydrox/Al Hydrox/Simeth 30 ML UDC PO SCH (08:09)
[2021-08-20] MEDS: Lactulose Oral Soln 20 GM/30 ML UDC PO SCH (08:09)
[2021-08-20] MEDS ORDERED: Lidocaine -MPF 2% 5 ML VIAL ONE (09:45)
[2021-08-20] MEDS ORDERED: Mag Hydrox/Al Hydrox/Simeth 30 ML UDC PO PRN (16:43)
[2021-08-20] MEDS: Ipratropium/Albuterol Neb 3 ML IH PRN (21:54)
[2021-08-21 03:07] LABS: Hemoglobin 8.9 g/dL (12.9-16.9)
[2021-08-21 03:09] LABS: Hematocrit 30.3 % (37.5-50.1); Immature Platelets 5.4 % (1.1-6.1); Mean Corpuscular HGB Conc 29.4 g/dL (31.6-35.5); Mean Corpuscular Hemoglobin 22.5 pg (28.0-33.3); Mean Corpuscular Volume 76.5 fL (83.0-100.0); Platelet Count 142 K/mcL (140-400); Red Blood Count 3.96 M/mcL (4.19-5.50); White Blood Count 4.3 K/mcL (4.3-11.1)
[2021-08-21] MEDS: lisinopriL 10 MG TABLET PO SCH (08:03)
[2021-08-21] MEDS: Simethicone 80 MG TAB.CHEW PO SCH ×2 (08:03→17:10)
[2021-08-21] MEDS: Isosorbide MONOnitrate (24 HR) 30 MG TAB.ER.24H PO SCH (08:03)
[2021-08-21] MEDS: Cholecalciferol (D-3) 1,000 UNIT (25MCG) TABLET PO SCH (08:04)
[2021-08-21] MEDS: amLODIPine 5 MG TABLET PO SCH (08:04)
[2021-08-21] MEDS: Pregabalin 75 MG CAPSULE PO SCH ×2 (08:04→21:01)
[2021-08-21] MEDS: Furosemide 40 MG TABLET PO SCH ×2 (08:05→21:01)
[2021-08-21] MEDS: hydrALAZINE 25 MG TABLET PO SCH ×4 (08:05→21:01)
[2021-08-21] MEDS: *HR* OxyCODONE Immed Rel 5 MG TABLET PO PRN ×2 (08:14→13:54)
[2021-08-21] MEDS ORDERED: Simethicone 40 MG/0.6 ML MLS IR ONE (09:56)
[2021-08-21 13:10] LABS: Adenovirus Not Detected (Not Detect); Bordetella Pertussis Not Detected (Not Detect); Chlamydophila pneumoniae Not Detected (Not Detect); Coronavirus 229E Not Detected (Not Detect); Coronavirus HKU1 Not Detected (Not Detect); Coronavirus NL63 Not Detected (Not Detect); Coronavirus OC43 Not Detected (Not Detect); Human Metapneumovirus Not Detected (Not Detect); Human Rhinovirus/Enterovirus Not Detected (Not Detect); Influenza A Subtype 2009 H1 Not Detected (Not Detect); Influenza B Not Detected (Not Detect); Mycoplasma pneumoniae Not Detected (Not Detect); Parainfluenza Virus 1 Not Detected (Not Detect); Parainfluenza Virus 2 Not Detected (Not Detect); Parainfluenza Virus 3 Not Detected (Not Detect); Parainfluenza Virus 4 Not Detected (Not Detect); Respiratory Syncytial Virus Not Detected (Not Detect); SARS-CoV-2 Not Detected (Not Detect)
[2021-08-21] MEDS: Ipratropium/Albuterol Neb 3 ML IH PRN (21:10)
[2021-08-22 07:16] VITALS: BP 160/60; PULSE 50; TEMP 98.3; O2SAT 94
== END 2021-08-22 08:57 | DRG 802 ==
LOC: 2ANU 16:50 → EMEROOARM 16:50 → SUATTDRO 22:34 → 2ANU 08-11 00:04
PROVIDERS: ADMIT Student in an Organized Health Care Education/Training Program; ATTEND Pharmacist

== ENCOUNTER 2022-07-20 15:35 | Inpatient (IN) ==
[2022-07-20 16:29] LABS: Basophils % 0.8 %; Eosinophils # 0.2 K/mcL (0.0-0.6); Eosinophils % 3.5 %; Hematocrit 36.1 % (37.5-50.1); Immature Granulocytes % 0.2 % (0-4); Lymphocytes # 1.6 K/mcL (0.6-4.6); Lymphocytes % 33.2 %; Mean Corpuscular HGB Conc 30.5 g/dL (31.6-35.5); Mean Corpuscular Hemoglobin 24.1 pg (28.0-33.3); Mean Corpuscular Volume 79.2 fL (83.0-100.0); Mean Platelet Volume 10.7 fL (9.4-12.4); Monocytes # 0.3 K/mcL (0.0-1.3); Monocytes % 5.4 %; Neutrophils # 2.8 K/mcL (1.6-8.9); Platelet Count 152 K/mcL (140-400); Red Blood Count 4.56 M/mcL (4.19-5.50); Red Cell Distribution Width 16.9 % (11.5-14.5); Segmented Neutrophils % 56.9 %; White Blood Count 4.9 K/mcL (4.3-11.1)
[2022-07-20 16:41] LABS: INR 1.5; Prothrombin Time 16.5 Seconds (9.4-12.1)
[2022-07-20 16:52] LABS: Alanine Aminotransferase 14 Units/L (7-52); Albumin 3.9 g/dL (3.5-5.7); Albumin/Globulin Ratio 1.1 (1.1-2.2); Alkaline Phosphatase 109 Units/L (34-104); Aspartate Amino Transferase 32 Units/L (13-39); BUN/Creatinine Ratio 35 (6-26); Bilirubin,Direct 0.1 mg/dL (0.0-0.2); Bilirubin,Indirect 0.4 mg/dL (0.0-1.0); Bilirubin,Total 0.5 mg/dL (0.3-1.0); Blood Urea Nitrogen 44 mg/dL (8-23); Calcium 9.8 mg/dL (8.6-10.3); Carbon Dioxide 28 mEq/L (23-29); Chloride 102 mEq/L (98-107); Ethanol < 10 mg/dL (Less than 10); Globulin 3.7 g/dL (2.4-3.5); Glucose 121 mg/dL (70-105); Osmolality,Calculated 296 (280-300); Potassium 4.9 mEq/L (3.5-5.1); Sodium 137 mEq/L (136-145); Total Protein 7.6 g/dL (6.4-8.9); Troponin I < 0.03 ng/mL (< 0.04)
[2022-07-20 17:24] LABS: Amorphous Sediment,Urine Few per hpf (None-Few); Bacteria,Urine Few per hpf (None-Few); Bilirubin,Urine Negative (Negative); Blood,Urine Negative (Negative); Clarity,Urine Turbid (Clear); Color,Urine Yellow (Yellow); Glucose,Urine (UA) Normal (Normal); Ketones,Urine Negative (Negative); Leukocyte Esterase,Urine Large (Negative); Mucus,Urine Few per lpf (None-Few); Nitrite,Urine Negative (Negative); Protein,Urine 50 mg/dL (Neg-Trace); Specific Gravity,Urine 1.014 (1.010-1.025); Squamous Epithelial Cell,Urine Few per hpf (None-Few); Urobilinogen,Urine Normal (Normal); WBC,Urine 50-100 per hpf (0-3)
[2022-07-20 17:28] LABS: Amphetamine Screen,Urine Negative ng/mL (Cutoff=1000); Barbiturate Screen,Urine Negative ng/mL (Cutoff=200); Benzodiazepines Screen,Urine Negative ng/mL (Cutoff=200); Cannabinoid Screen,Urine Negative ng/mL (Cutoff = 50); Cocaine Screen,Urine Negative ng/mL (Cutoff= 300); Opiate Screen,Urine Negative ng/mL (Cutoff=300); Phencyclidine Screen,Urine Negative ng/mL (Cutoff=25)
[2022-07-20] MEDS ORDERED: cefTRIAXone 1,000 MG in 0.9 % Sodium Chloride 10 ML IVP ONE (17:35)
[2022-07-20] MEDS ORDERED: Naloxone 0.4 MG/ML INJ IVP PRN (17:41)
[2022-07-20] MEDS ORDERED: Ondansetron 4 MG/2 ML VIAL IVP PRN (17:41)
[2022-07-20] MEDS: *HR* Heparin 5,000 UNIT/ML VIAL SQ SCH (18:42)
[2022-07-20] MEDS: Lactulose Oral Soln 20 GM/30 ML UDC PO SCH (20:17)
[2022-07-20] MEDS: *HR* HYDROcodone/Acet 5/325 mg TABLET PO PRN (21:17)
[2022-07-20] MEDS ORDERED: *HR* Labetalol 20 MG/4 ML SYRINGE IVP ONE (23:42)
[2022-07-21 02:26] LABS: Basophils % 0.9 %; Eosinophils # 0.2 K/mcL (0.0-0.6); Eosinophils % 3.6 %; Hematocrit 34.8 % (37.5-50.1); Hemoglobin 10.6 g/dL (12.9-16.9); Immature Granulocytes % 0.2 % (0-4); Lymphocytes # 1.3 K/mcL (0.6-4.6); Lymphocytes % 28.4 %; Mean Corpuscular HGB Conc 30.5 g/dL (31.6-35.5); Mean Corpuscular Hemoglobin 24.3 pg (28.0-33.3); Mean Corpuscular Volume 79.6 fL (83.0-100.0); Mean Platelet Volume 11.6 fL (9.4-12.4); Monocytes # 0.3 K/mcL (0.0-1.3); Monocytes % 6.3 %; Neutrophils # 2.7 K/mcL (1.6-8.9); Platelet Count 135 K/mcL (140-400); Red Blood Count 4.37 M/mcL (4.19-5.50); Segmented Neutrophils % 60.6 %; White Blood Count 4.4 K/mcL (4.3-11.1)
[2022-07-21 02:45] LABS: Calcium 9.4 mg/dL (8.6-10.3); Magnesium 2.2 mg/dL (1.6-2.6); Phosphorous 3.9 mg/dL (2.7-4.5); Potassium 4.4 mEq/L (3.5-5.1)
[2022-07-21] MEDS: *HR* Heparin 5,000 UNIT/ML VIAL SQ SCH (06:25)
[2022-07-21] MEDS: Lactulose Oral Soln 20 GM/30 ML UDC PO SCH ×2 (08:45→20:14)
[2022-07-21] MEDS: Spironolactone 25 MG TABLET PO SCH (08:45)
[2022-07-21] MEDS: cefTRIAXone 1,000 MG in Water for inj. (sterile) 10 ML IVP SCH (16:47)
[2022-07-21] MEDS: *HR* HYDROcodone/Acet 5/325 mg TABLET PO PRN (20:13)
[2022-07-22 02:57] LABS: Calcium 9.3 mg/dL (8.6-10.3); Potassium 3.9 mEq/L (3.5-5.1)
[2022-07-22] MEDS: *HR* HYDROcodone/Acet 5/325 mg TABLET PO PRN ×2 (03:15→20:35)
[2022-07-22] MEDS: Spironolactone 25 MG TABLET PO SCH (08:54)
[2022-07-22] MEDS: Lactulose Oral Soln 20 GM/30 ML UDC PO SCH ×2 (08:54→20:25)
[2022-07-22] MEDS: Nitrofurantoin (BID) 100 MG CAPSULE PO SCH ×2 (11:01→17:45)
[2022-07-22] MEDS: cefTRIAXone 1,000 MG in Water for inj. (sterile) 10 ML IVP SCH (17:45)
[2022-07-23 07:17] VITALS: BP 168/67; PULSE 53; TEMP 97.9
[2022-07-23 08:22] LABS: Calcium 9.5 mg/dL (8.6-10.3); Potassium 4.2 mEq/L (3.5-5.1)
[2022-07-23] MEDS: Lactulose Oral Soln 20 GM/30 ML UDC PO SCH (09:19)
[2022-07-23] MEDS: Nitrofurantoin (BID) 100 MG CAPSULE PO SCH (09:19)
[2022-07-23] MEDS: *HR* HYDROcodone/Acet 5/325 mg TABLET PO PRN (09:21)
[2022-07-23 09:32] VITALS: O2SAT 99
[2022-07-23] MEDS ORDERED: Cefdinir 300 MG CAPSULE PO SCH (10:15)
[2022-07-23 10:52] LABS: Influenza A PCR Negative (Negative); Influenza B PCR Negative (Negative); Resp. Syncytial Virus PCR Negative (Negative)
[2022-07-23 11:00] LABS: SARS-CoV-2 by PCR (In House) Negative (Negative)
== END 2022-07-23 12:19 | DRG 698 ==
LOC: 3BNU 15:35 → EMEROOARM 15:35 → SUATTDRO 17:49 → 3BNU 18:25
PROVIDERS: ADMIT Internal Medicine; ATTEND Internal Medicine